=== PATIENT | male | born 1950 | race Caucasian/White ===

== ENCOUNTER 2024-07-02 12:43 | Outpatient (AMB) | payer OTHER, SELFPAY ==
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
[2024-07-02 13:01] VITALS: BMI 28.9
== END 2024-07-02 13:46 | disposition home or self-care (01) ==
PROVIDERS: PCP Psychiatry & Neurology Neurology; Visit Provider Psychiatry & Neurology Neurology
DX: G20.A1 Parkinson's disease without dyskinesia, without mention of fluctuations (principal); Z77.098 Contact with and (suspected) exposure to other hazardous, chiefly nonmedicinal, chemicals; G47.52 REM sleep behavior disorder
CPT/HCPCS: 99204; G2211

== ENCOUNTER → 2024-07-02 12:43 | Outpatient (BNVA) | payer OTHER, SELFPAY | PROVIDERS: PCP Psychiatry & Neurology Neurology; Visit Provider Psychiatry & Neurology Neurology | DX: G20.A1 Parkinson's disease without dyskinesia, without mention of fluctuations (principal); G47.52 REM sleep behavior disorder; Z77.098 Contact with and (suspected) exposure to other hazardous, chiefly nonmedicinal, chemicals | CPT/HCPCS: 99202 ==

== ENCOUNTER 2025-01-06 14:12 | Outpatient (AMB) | payer OTHER, SELFPAY ==
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
[2025-01-06 14:24] VITALS: BMI 27.8
--- OUTSIDE RECORDS SUMMARY | 2025-01-06 16:24 | XMS_ITS | Data Portability ---
Author Organization [facility], FORMERLY [facility] Address [address] [place] [address] Care Team Providers Care Retail Coverage Merchandiser Name Role Phone EDEL TAN Urologist SHERLYN THEODORE Embedder TRIP HOFFMAN Primary Care Provider Assessment Encounter Date Assessment Date Assessment LastModified by Organization Details LastModified Time 05/23/2023 05/23/2023 declines AAA screening or colonoscopy [email or web address] Not available 05/23/2023 15:30:55 11/21/2023 11/21/2023 labs 2024: Lipids/ BMP Could not bill PHA, not one year + one day since prior PHA [email or web address] Not available 11/25/2023 16:58:49 Plan of Treatment Reminders Order Date Submit Date Provider Last Modified By Organization Details Last Modified Time Details Appointments Wellness Visit 30 2024 03:30P Mary FULTON, PROPERTY FIELD ADJUSTER-BC Not available Not available Not available Lab BMP, serum or plasma 2023 [facility], [address] [place] [address], [address], 05/30/2024 10:46:40 lipid panel, serum 2023 024 [facility], [address] [place], [address], 05/30/2024 10:46:41 Referral dermatolo gist referral - 5-7 mm raised nodule L nare with hx BCChighly suspic for BCC, kindly consult 2023 024 CHERI Theodore MD, [address] [place], [address], 05/14/2024 14:52:06 Procedures None recorded. Surgeries None recorded. Imaging None recorded. Medication Orders None recorded. Patient TargetsNo targets recorded. Patient Instructions Encounter Date Encounter Id Patient Instructions Last Modified By Organization Details Last Modified Time 11/21/2023 [id number] well visit, over 65: care instructions livier Not available 11/21/2023 15:45:38 Reason for Referral Embedder Referral for N eoplasm of uncertain behavior of skin of nose 5-7 mm raised nodule L nare with hx BCChighly suspic for BCC, kindly consult Referring Physician: Ling Lopez, Family Medicine, Encounter Date: 05/12/2024 Results Created Date Observation Date Name Description Value Unit Range Abnormal Flag Note LastModifiedBy Organization Detail LastModifiedTime 05/09/2005/09/2023 BASIC METAB OLIC PANEL glucose 111 mg/dL 70-100 high Not Available [address], [address], 05/09/2023 12:57:07 05/09/2005/09/2023 BASIC METAB OLIC PANEL BUN 17 mg/dL 7-18 Not Available [address], [address], 05/09/2023 12:57:07 05/09/2005/09/2023 BASIC METAB OLIC PANEL creatinine 0.9 mg/dL 0.8-1. 3 Not Available [address], [address], 05/09/2023 12:57:07 05/09/2005/09/2023 BASIC METAB OLIC PANEL B/C 18.9 ratio Not Available [address], [address], 05/09/2023 12:57:07 05/09/2005/09/2023 BASIC METAB OLIC PANEL GFR >=60ML /MIN mL/mi n normal >=60m L/min - Jenny l or midly reduc ed <60mL /min- Decre ased kidne y funct ion <15mL /min - Kidne y failu re [facility] calcu lates estim ated Glome rular Filtr ation Rate (eGFR ) using the Chron ic Kidne y Disea se Epide miolo gy Colla borat ion (CKD- EPI) Equat ion (Nayane r et. al 2020) as recom jesenia d by the Natio nal Kidne y Found ation . eGFR is based on age, serum creat inine , and sex. CKD-E PI does not calcu late eGFR by race, does not apply to child niurka (age <18 years ), and shoul d not be used in pregn michael. Not Available [address], [address], 05/09/2023 12:57:07 05/09/20 23 05/09/2023 BASIC METAB OLIC PANEL sodium 139 mmol/ L 136-14 5 Not Available [address], [address], 05/09/2023 12:57:07 05/09/20 23 05/09/2023 BASIC METAB OLIC PANEL potassium 4.1 mmol/ L 3.5-5. 1 Not Available [address], [address], 05/09/2023 12:57:07 05/09/20 23 05/09/2023 BASIC METAB OLIC PANEL chloride 102 mmol/ L 96-107 Not Available [address], [address], 05/09/2023 12:57:07 05/09/2005/09/2023 BASIC METAB OLIC PANEL anion gap 8.3 5.0-15 .0 Not Available [address], [address], 05/09/2023 12:57:07 05/09/20 23 05/09/2023 BASIC METAB OLIC PANEL CO2 29 mmol/ L 21-32 Not Available [address], [address], 05/09/2023 12:57:07 05/09/20 23 05/09/2023 BASIC METAB OLIC PANEL calcium 9.3 mg/dL 8.5-10 .3 Not Available [address], [address], 05/09/2023 12:57:07 05/09/20 23 05/11/2023 PSA PSA <0.05 NG/mL 0.00-4 .00 < Verif ied by Anam garcia. Not Available [address], [address], 05/11/2023 11:55:35 11/14/19 24 11/15/2023 PSA PSA <0.05 NG/mL 0.00-4 .00 < Verif ied by tiffany tay gc. Not Available [address], [address], 11/15/2023 10:40:45 11/14/19 24 11/15/2023 BASIC METAB OLIC PANEL glucose 95 mg/dL 70-100 Not Available [address], [address], 11/15/2023 10:58:39 11/14/19 24 11/15/2023 BASIC METAB OLIC PANEL BUN 15 mg/dL 7-18 Not Available [address], [address], 11/15/2023 10:58:39 11/14/19 24 11/15/2023 BASIC METAB OLIC PANEL creatinine 0.8 mg/dL 0.8-1. 3 Not Available [address], [address], 11/15/2023 10:58:39 11/14/19 24 11/15/2023 BASIC METAB OLIC PANEL B/C 18.8 ratio Not Available [address], [address], 11/15/2023 10:58:39 11/14/19 24 11/15/2023 BASIC METAB OLIC PANEL GFR >=60ML /MIN mL/mi n normal >=60m L/min - Jenny l or midly reduc ed <60mL /min- Decre ased kidne y funct ion <15mL /min - Kidne y failu re [facility] calcu lates estim ated Glome rular Filtr ation Rate (eGFR ) using the Chron ic Kidne y Disea se Epide miolo gy Colla borat ion (CKD- EPI) Equat ion (Nayane r et. al 2020) as recom jesenia d by the Natio nal Kidne y Found ation . eGFR is based on age, serum creat inine , and sex. CKD-E PI does not calcu late eGFR by race, does not apply to child niurka (age <18 years ), and shoul d not be used in pregn michael. Not Available [address], [address], 11/15/2023 10:58:39 11/14/19 24 11/15/2023 BASIC METAB OLIC PANEL sodium 142 mmol/ L 136-14 5 Not Available [address], [address], 11/15/2023 10:58:39 11/14/19 24 11/15/2023 BASIC METAB OLIC PANEL potassium 4.0 mmol/ L 3.5-5. 1 Not Available [address], [address], 11/15/2023 10:58:39 11/14/19 24 11/15/2023 BASIC METAB OLIC PANEL chloride 104 mmol/ L 96-107 Not Available [address], [address], 11/15/2023 10:58:39 11/14/19 24 11/15/2023 BASIC METAB OLIC PANEL anion gap 11.4 5.0-15 .0 Not Available [address], [address], 11/15/2023 10:58:39 11/14/1911/15/2023 BASIC METAB OLIC PANEL CO2 27 mmol/ L 21-32 Not Available [address], [address], 11/15/2023 10:58:39 11/14/1911/15/2023 BASIC METAB OLIC PANEL calcium 8.8 mg/dL 8.5-10 .3 Not Available [address], [address], 11/15/2023 10:58:39 11/14/1911/15/2023 LIPID PANEL cholesterol 184 mg/dL <200 mg/dl Mona able 200-2 39 mg/dl Borde rline High >240 mg/dl High Not Available [address], [address], 11/15/2023 10:58:40 11/14/1911/15/2023 LIPID PANEL triglyceride s 171 mg/dL <150 mg/dL Jenny l 150-1 99 mg/dL Borde rline High 200-4 99 mg/dL High >500 mg/dL Very High Not Available [address], [address], 11/15/2023 10:58:40 11/14/1911/15/2023 LIPID PANEL direct HDL 39 mg/dL <40 mg/dl - Major Risk for CHD >60 mg/dl - Negat raji Risk for CHD Not Available [address], [address], 11/15/2023 10:58:40 11/14/1911/15/2023 DIREC T LDL direct LDL 118 mg/dL RISK CATEG ORY LDL GOAL _ CHD or CHD Risk Equiv alent s <100 mg/dl (10-y ear risk >20%) 2+ Risk Facto rs <130 mg/dl (10-y ear risk <= 20%) 0-1 Risk Facto r? <160 mg/dl ? Almos t all peopl e with 0-1 risk facto r have a 10 year risk <10%, thus 10 year risk asses ment in peopl e with 0-1 risk facto r is not ac will. Not Available [address], [address], 11/15/2023 10:58:41 05/05/2005/05/2024 CBC WBC 8.62 K/? ? ?L 4.23-9 .07 Not Available [address], [address], 05/05/2024 17:06:07 05/05/2005/05/2024 CBC RBC 5.00 M/? ? ?L 4.63-6 .08 Not Available [address], [address], 05/05/2024 17:06:07 05/05/2005/05/2024 CBC HGB 13.4 g/dL 13.7-1 7.5 low Not Available [address], [address], 05/05/2024 17:06:07 05/05/2005/05/2024 CBC HCT 42.1 % 40.1-5 1.0 Not Available [address], [address], 05/05/2024 17:06:07 05/05/2005/05/2024 CBC MCV 84.2 fL 79.0-9 2.2 Not Available [address], [address], 05/05/2024 17:06:07 05/05/20 24 05/05/2024 CBC MCH 26.8 pg 25.7-3 2.2 Not Available [address], [address], 05/05/2024 17:06:07 05/05/2005/05/2024 CBC MCHC 31.8 g/dL 32.3-3 6.5 low Not Available [address], [address], 05/05/2024 17:06:07 05/05/2005/05/2024 CBC plt 222 K/? ? ?L 163-33 7 Not Available [address], [address], 05/05/2024 17:06:07 05/05/2005/05/2024 CBC MPV 10.9 fL 9.4-12 .4 Not Available [address], [address], 05/05/2024 17:06:07 05/05/2005/05/2024 CBC neut% 70.2 % 34.0-6 7.9 high Not Available [address], [address], 05/05/2024 17:06:07 05/05/2005/05/2024 CBC neut# 6.06 1.78-5 .38 high Not Available [address], [address], 05/05/2024 17:06:07 05/05/2005/05/2024 CBC lymph % 22.2 % 21.8-5 3.1 Not Available [address], [address], 05/05/2024 17:06:07 05/05/2005/05/2024 CBC lymph # 1.91 K/? ? ?L 1.32-3 .57 Not Available [address], [address], 05/05/2024 17:06:07 10/14/20 24 05/05/2024 CBC mono% 6.3 % 5.3-12 .2 Not Available [address], [address], 05/05/2024 17:06:07 05/05/2005/05/2024 CBC mono# 0.54 0.30-0 .82 Not Available [address], [address], 05/05/2024 17:06:07 05/05/2005/05/2024 CBC eo% 0.6 % 0.8-7. 0 low Not Available [address], [address], 05/05/2024 17:06:07 05/05/2005/05/2024 CBC eo# 0.05 0.04-0 .54 Not Available [address], [address], 05/05/2024 17:06:07 05/05/2005/05/2024 CBC baso% 0.2 % 0.2-1. 2 Not Available [address], [address], 05/05/2024 17:06:07 05/05/2005/05/2024 CBC baso# 0.02 0.00-0 .08 Not Available [address], [address], 05/05/2024 17:06:07 05/05/2005/05/2024 CBC RDW-CV 13.1 % 11.6-1 4.4 Not Available [address], [address], 05/05/2024 17:06:07 05/05/2005/05/2024 CBC Ig% 0.500 % 0.000- 1.500 Ig % >0.5 Indic ates possi ble Left Shift Not Available [address], [address], 05/05/2024 17:06:07 05/05/20 24 05/05/2024 CBC Ig# 0.040 0.000- 0.093 Not Available [address], [address], 05/05/2024 17:06:07 05/05/20 24 05/05/2024 CBC NRBC% 0.0 % 0.0-0. 2 Not Available [address], [address], 05/05/2024 17:06:07 05/05/20 24 05/05/2024 CBC NRBC# 0.000 0.000- 0.012 Not Available [address], [address], 05/05/2024 17:06:07 05/05/20 24 05/06/2024 COMP. METAB OLIC PANEL glucose 101 mg/dL 70-100 high Not Available [address], [address], 05/06/2024 11:27:43 05/05/20 24 05/06/2024 COMP. METAB OLIC PANEL BUN 16 mg/dL 7-18 Not Available [address], [address], 05/06/2024 11:27:43 05/05/20 24 05/06/2024 COMP. METAB OLIC PANEL creatinine 0.9 mg/dL 0.8-1. 3 Not Available [address], [address], 05/06/2024 11:27:43 05/05/20 24 05/06/2024 COMP. METAB OLIC PANEL B/C 17.8 ratio Not Available [address], [address], 05/06/2024 11:27:43 05/05/20 24 05/06/2024 COMP. METAB OLIC PANEL GFR >=60ML /MIN mL/mi n normal >=60m L/min - Jenny l or midly reduc ed <60mL /min- Decre ased kidne y funct ion <15mL /min - Kidne y failu re [facility] calcu lates estim ated Glome rular Filtr ation Rate (eGFR ) using the Chron ic Kidne y Disea se Epide miolo gy Colla borat ion (CKD- EPI) Equat ion (Nayane r et. al 2020) as recom jesenia d by the Natio nal Kidne y Found ation . eGFR is based on age, serum creat inine , and sex. CKD-E PI does not calcu late eGFR by race, does not apply to child niurka (age <18 years ), and shoul d not be used in pregn michael. Not Available [address], [address], 05/06/2024 11:27:43 05/05/2005/06/2024 COMP. METAB OLIC PANEL sodium 142 mmol/ L 136-14 5 Not Available [address], [address], 05/06/2024 11:27:43 05/05/2005/06/2024 COMP. METAB OLIC PANEL potassium 4.1 mmol/ L 3.5-5. 1 Not Available [address], [address], 05/06/2024 11:27:43 05/05/2005/06/2024 COMP. METAB OLIC PANEL chloride 104 mmol/ L 96-107 Not Available [address], [address], 05/06/2024 11:27:43 05/05/2005/06/2024 COMP. METAB OLIC PANEL anion gap 7.9 5.0-15 .0 Not Available [address], [address], 05/06/2024 11:27:43 05/05/20 24 05/06/2024 COMP. METAB OLIC PANEL CO2 30 mmol/ L 21-32 Not Available [address], [address], 05/06/2024 11:27:43 05/05/20 24 05/06/2024 COMP. METAB OLIC PANEL calcium 8.9 mg/dL 8.5-10 .3 Not Available [address], [address], 05/06/2024 11:27:43 05/05/20 24 05/06/2024 COMP. METAB OLIC PANEL total protein 7.1 g/dL 6.4-8. 2 Not Available [address], [address], 05/06/2024 11:27:43 05/05/20 24 05/06/2024 COMP. METAB OLIC PANEL albumin 3.6 g/dL 3.4-5. 0 Not Available [address], [address], 05/06/2024 11:27:43 05/05/20 24 05/06/2024 COMP. METAB OLIC PANEL globulin 3.5 g/dL Not Available [address], [address], 05/06/2024 11:27:43 05/05/20 24 05/06/2024 COMP. METAB OLIC PANEL A/G 1.0 ratio 0.8-2. 0 Not Available [address], [address], 05/06/2024 11:27:43 05/05/20 24 05/06/2024 COMP. METAB OLIC PANEL total bilirubin 0.40 mg/dL 0.00-1 .00 Not Available [address], [address], 05/06/2024 11:27:43 05/05/20 24 05/06/2024 COMP. METAB OLIC PANEL AST 10 U/L 0-37 Not Available [address], [address], 05/06/2024 11:27:43 05/05/2005/06/2024 COMP. METAB OLIC PANEL ALT 18 U/L 6-63 Not Available [address], [address], 05/06/2024 11:27:43 05/05/2005/06/2024 COMP. METAB OLIC PANEL alk. phos. 90 U/L 50-136 Not Available [address], [address], 05/06/2024 11:27:43 05/29/2005/30/2024 BASIC METAB OLIC PANEL glucose 99 mg/dL 70-100 Not Available [address], [address], 05/30/2024 10:46:40 05/29/20 24 05/30/2024 BASIC METAB OLIC PANEL BUN 15 mg/dL 7-18 Not Available [address], [address], 05/30/2024 10:46:40 05/29/20 24 05/30/2024 BASIC METAB OLIC PANEL creatinine 0.9 mg/dL 0.8-1. 3 Not Available [address], [address], 05/30/2024 10:46:40 05/29/2005/30/2024 BASIC METAB OLIC PANEL B/C 16.7 ratio Not Available [address], [address], 05/30/2024 10:46:40 05/29/20 24 05/30/2024 BASIC METAB OLIC PANEL GFR >=60ML /MIN mL/mi n normal >=60m L/min - Jenny l or midly reduc ed <60mL /min- Decre ased kidne y funct ion <15mL /min - Kidne y failu re [facility] calcu lates estim ated Glome rular Filtr ation Rate (eGFR ) using the Chron ic Kidne y Disea se Epide miolo gy Colla borat ion (CKD- EPI) Equat ion (Rossy r et. al 2020) as recom jesenia d by the Natio nal Kidne y Found ation . eGFR is based on age, serum creat inine , and sex. CKD-E PI does not calcu late eGFR by race, does not apply to child niurka (age <18 years ), and shoul d not be used in pregn michael. Not Available [address], [address], 05/30/2024 10:46:40 05/29/20 24 05/30/2024 BASIC METAB OLIC PANEL sodium 140 mmol/ L 136-14 5 Not Available [address], [address], 05/30/2024 10:46:40 05/29/20 24 05/30/2024 BASIC METAB OLIC PANEL potassium 4.2 mmol/ L 3.5-5. 1 Not Available [address], [address], 05/30/2024 10:46:40 05/29/20 24 05/30/2024 BASIC METAB OLIC PANEL chloride 103 mmol/ L 96-107 Not Available [address], [address], 05/30/2024 10:46:40 05/29/20 24 05/30/2024 BASIC METAB OLIC PANEL anion gap 5.4 5.0-15 .0 Not Available [address], [address], 05/30/2024 10:46:40 05/29/20 24 05/30/2024 BASIC METAB OLIC PANEL CO2 32 mmol/ L 21-32 Not Available [address], [address], 05/30/2024 10:46:40 05/29/20 24 05/30/2024 BASIC METAB OLIC PANEL calcium 9.3 mg/dL 8.5-10 .3 Not Available [address], [address], 05/30/2024 10:46:40 05/29/20 24 05/30/2024 LIPID PANEL cholesterol 208 mg/dL <200 mg/dl Mona able 200-2 39 mg/dl Borde rline High >240 mg/dl High Not Available [address], [address], 05/30/2024 10:46:41 05/29/20 24 05/30/2024 LIPID PANEL triglyceride s 127 mg/dL <150 mg/dL Jenny l 150-1 99 mg/dL Borde rline High 200-4 99 mg/dL High >500 mg/dL Very High Not Available [address], [address], 05/30/2024 10:46:41 05/29/20 24 05/30/2024 LIPID PANEL direct HDL 46 mg/dL <40 mg/dl - Major Risk for CHD >60 mg/dl - Negat raji Risk for CHD Not Available [address], [address], 05/30/2024 10:46:41 05/29/20 24 05/30/2024 DIREC T LDL direct LDL 144 mg/dL RISK CATEG ORY LDL GOAL _ CHD or CHD Risk Equiv alent s <100 mg/dl (10-y ear risk >20%) 2+ Risk Facto rs <130 mg/dl (10-y ear risk <= 20%) 0-1 Risk Facto r? <160 mg/dl ? Almos t all peopl e with 0-1 risk facto r have a 10 year risk <10%, thus 10 year risk asses ment in peopl e with 0-1 risk facto r is not ac will. Not Available [address], [address], 05/30/2024 10:46:42 05/29/20 24 05/30/2024 PSA PSA 0.05 NG/mL 0.00-4 .00 Not Available [address], [address], 05/30/2024 15:19:25 10/31/19 25 10/30/2024 BASIC METAB OLIC PANEL glucose 93 mg/dL 70-100 LIPS= Speci men Sligh tly Lipem ic. Chem Resul ts may be effec gab. Not Available [address], [address], 10/30/2024 16:23:57 10/31/19 25 10/30/2024 BASIC METAB OLIC PANEL BUN 12 mg/dL 7-18 Not Available [address], [address], 10/30/2024 16:23:57 10/31/19 25 10/30/2024 BASIC METAB OLIC PANEL creatinine 0.9 mg/dL 0.8-1. 3 Not Available [address], [address], 10/30/2024 16:23:57 10/31/19 25 10/30/2024 BASIC METAB OLIC PANEL B/C 13.3 ratio Not Available [address], [address], 10/30/2024 16:23:57 10/31/19 25 10/30/2024 BASIC METAB OLIC PANEL GFR >=60ML /MIN mL/mi n normal >=60m L/min - Jenny l or midly reduc ed <60mL /min- Decre ased kidne y funct ion <15mL /min - Kidne y failu re [facility] calcu lates estim ated Glome rular Filtr ation Rate (eGFR ) using the Chron ic Kidne y Disea se Epide miolo gy Colla borat ion (CKD- EPI) Equat ion (Inke r et. al 2020) as recom jesenia d by the [facility] . eGFR is based on age, serum creat inine , and sex. CKD-E PI does not calcu late eGFR by race, does not apply to child niurka (age <18 years ), and shoul d not be used in pregn michael. Not Available [address], [address], 10/30/2024 16:23:57 10/31/19 25 10/30/2024 BASIC METAB OLIC PANEL sodium 142 mmol/ L 136-14 5 Not Available [address], [address], 10/30/2024 16:23:57 10/31/19 25 10/30/2024 BASIC METAB OLIC PANEL potassium 4.1 mmol/ L 3.5-5. 1 Not Available [address], [address], 10/30/2024 16:23:57 10/31/19 25 10/30/2024 BASIC METAB OLIC PANEL chloride 104 mmol/ L 96-107 Not Available [address], [address], 10/30/2024 16:23:57 10/31/19 25 10/30/2024 BASIC METAB OLIC PANEL anion gap 9.6 5.0-15 .0 Not Available [address], [address], 10/30/2024 16:23:57 10/31/19 25 10/30/2024 BASIC METAB OLIC PANEL CO2 28 mmol/ L 21-32 Not Available [address], [address], 10/30/2024 16:23:57 10/31/19 25 10/30/2024 BASIC METAB OLIC PANEL calcium 9.0 mg/dL 8.5-10 .3 Not Available [address], [address], 10/30/2024 16:23:57 12/17/1912/16/2024 PSA PSA 0.09 NG/mL 0.00-4 .00 Not Available [address], [address], 12/16/2024 14:47:10 12/17/1912/17/2024 LIPID PANEL cholesterol 205 mg/dL <200 mg/dl Mona able 200-2 39 mg/dl Borde rline High >240 mg/dl High Not Available [address], [address], 12/17/2024 12:01:16 12/17/1912/17/2024 LIPID PANEL triglyceride s 132 mg/dL <150 mg/dL Jenny l 150-1 99 mg/dL Borde rline High 200-4 99 mg/dL High >500 mg/dL Very High Not Available [address], [address], 12/17/2024 12:01:16 12/17/1912/17/2024 LIPID PANEL direct HDL 45 mg/dL <40 mg/dl - Major Risk for CHD >60 mg/dl - Negat raji Risk for CHD Not Available [address], [address], 12/17/2024 12:01:16 12/17/1912/17/2024 DIREC T LDL direct LDL 138 mg/dL RISK CATEG ORY LDL GOAL _ CHD or CHD Risk Equiv alent s <100 mg/dl (10-y ear risk >20%) 2+ Risk Facto rs <130 mg/dl (10-y ear risk <= 20%) 0-1 Risk Facto r? <160 mg/dl ? Almos t all peopl e with 0-1 risk facto r have a 10 year risk <10%, thus 10 year risk asses ment in peopl e with 0-1 risk facto r is not ac will. Not Available [address], [address], 12/17/2024 12:01:17 Result Notes None recorded. Problems Name Problem SNOMED Code Status Onset Date Resolution Date Notes Provider Name and Address Organization Details Recorded Time Generali zed anxiety disorder 53884834 Completed 08/31/2015 Moisés Sargent DPM [address] [place] [address], [phone] , [facility] 6 11:42:40 Essentia l hyperten chano 16619128 Active labile white coat declines med change in past MIRIAN HODGES-LITA [address] [place] [address], [phone] , [facility] 5 06:30:34 Disorder of skin and/or subcutan eous tissue 95725274 Completed 06/11/2013 Moisés Sargent DPM [address] [place] [address], [phone] , [facility] 6 11:42:40 Mixed anxiety and depressi ve disorder 950774044 Active Moisés Sargent DPM [address] [place] [address], [phone] , [facility] 6 11:42:40 Foot pain 98086274 Completed 08/31/2015 Moisés Sargent DPM [address] [place] [address], [phone] , [facility] 6 11:42:40 Plantar fasciiti s 663568955 Active Moisés Sargent DPM [address] [place] [address], [phone] , [facility] 6 11:45:13 Labile hyperten chano due to being in a clinical environm ent 794688271 Active 2016 MIRIAN Hernandez [address] [place] [address], [address] , [facility] 7 14:46:08 Parkinso n's disease 73786454 Active 2018 follows w [place] neuro TRIP RIVERA, PROPERTY FIELD ADJUSTER-BC [address] [place] [address], [phone] , [facility] 5 06:30:44 Malignan t neoplasm of prostate 908064665 Active 2019 Lori Maradiaga, PROPERTY FIELD ADJUSTER[address], , [facility] 0 21:56:34 COVID-19 127944737 Active 2022 Behzad Chester MD [address] [place] [address], , [facility] 3 18:10:31 Posttrau matic stress disorder 55141853 Active 2022 Ling arrieta PA-C [address] [place] [address], [address] , [facility] 3 06:41:24 Carcinom a of prostate 127134068 Active 2006 Dr Tan s/p XRT at [facility] in [facility] started 2019 Ling arrieta PA-C [address] [place] [address], [address] , [facility] 3 15:15:24 Moderate recurren t major depressi on 33234204 Active 2023 Ling arrieta PA-C [address] [place] [address], [address] , [facility] 4 15:42:52 Bilatera l hearing loss 83075748 Active 2023 Ling arrieta PA-C [address] [place] [address], , [facility] 4 15:43:10 Benign prostati c hyperpla teofilo 825274242 Active 2023 per urology note 02/15/24 Zuleyma Flores RN BSN null, [facility] 4 17:08:29 Basal cell carcinom a of skin 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 Procedures Surgical History Date Name Laterality Status Provider Name and Address Organization Details Recorded Time 11/21/19 23 Medicare Wellness Visit completed Amalia Almazan [facility] 11/20/2022 14:39:42 11/21/19 23 Cardiovascular disease risk reduction counseling completed Ling danielle PA-C [address] [place], [address], [facility] 11/21/2022 06:39:33 08/02/19 22 Medicare Wellness Visit completed Yesica Bales [facility] 08/02/2021 13:33:37 08/02/19 22 Alcohol use screening completed Yesica Bales [facility] 08/02/2021 13:33:37 08/02/19 22 Cardiovascular disease risk reduction counseling completed Yesica Bales [facility] 08/02/2021 13:33:37 07/29/19 21 Medicare Wellness Visit completed Yesica Bales [facility] 07/29/2020 10:38:01 07/29/19 21 prevention-cardiov ascular risk reduction counseling completed Yesica Bales [facility] 07/29/2020 10:38:01 07/29/19 21 prevention-annual alcohol misuse screening completed Yesica Bales [facility] 07/29/2020 10:38:01 10/30/19 19 Medicare Wellness Visit completed PATRIA Ugalde [facility] 10/29/2018 14:50:26 10/26/19 18 Medicare Wellness Visit completed Yesica Bales [facility] 10/25/2017 10:46:09 10/26/19 18 POC Urinalysis Testing completed Yesica Stokesprem [facility] 10/25/2017 12:06:42 10/26/19 18 Digital rectal exam completed MIRIAN Hernandez [address] [place], [address], [facility] 10/25/2017 16:43:54 10/25/19 17 Medicare Wellness Visit completed Kaylee Long LPN [facility] 10/24/2016 11:13:26 08/23/19 16 Medicare Wellness Visit completed Kaylee Long LPN [facility] 08/23/2015 13:33:31 08/02/19 16 78435: PT Evaluation completed Moisés Patterson, PT [address] [place], [address], [facility] 08/02/2015 15:17:56 08/02/19 16 Treatment and Advice completed Moisés Patterson, PT [address] [place], [address], [facility] 08/02/2015 10:32:49 Imaging Results None recorded. Procedure Notes None recorded. Medical Equipment None Reported. Allergies Allergen ID Allergen Name Allergen Category Reaction Reaction Severity Criticality Documentation Date Start Date Code Code System Note Provider Name and Address Organization Details Recorded Time [id number] Shellfish (substanc e) food,medi cation anaphylax is Not available Not available 01/30/2012 [id number] [facility] 2 13:47:10 Medications Name Sig Start Date Stop Date Status Note LastModified by Organization Details LastModified Time nifedipin e ER 30 mg tablet,ex tended release 24 hr Take 1 tablet every day by oral route. active Not Available Not Available No t Available amoxicill in 500 mg capsule TAKE ONE CAPSULE BY MOUTH 4 TIMES A DAY UNTIL FINISHED 04/29 completed Not Available Not Available Not Available Miralax 17 gram/dose oral powder 1 heaping tablespo on in 4-8 oz of water or juice PO daily 2013 active Not Available Not Available Not Avai lable doxycycli ne hyclate 100 mg capsule active Not Available Not Available Not Available Anusol-HC 2.5 % rectal cream with applicato r Insert 1 applicat ion by rectal route for 30 days. 2013 active has it if he needs it Not Available Not Available Not Available atorvasta tin 10 mg tablet Take by oral route for 30 days. active Not Available Not Available No t Available azithromy dayanna 250 mg tablet Take 2 tablet(s ) today,th en 1 tab on day 2-5 04/05 completed Not Available Not Available Not Available citalopra m 10 mg tablet Take 1 tablet every day by oral route for 30 days. 01/30 completed Not Available Not Available Not Available lisinopri l 20 mg tablet Take 1 tablet every day by oral route for 30 days. active Not Available Not Available No t Available metoprolo l succinate ER 100 mg tablet,ex tended release 24 hr TAKE 1 TABLET DAILY. active Not Available Not Available No t Available chlorthal idone 25 mg tablet Take 1/2 tablet(s ) every day by oral route for 30 days. 2011 active Not Available Not Available Not Avai lable doxycycli ne monohydra te 100 mg tablet Take 2 tablet(s ) today X1 dose 2011 active Not Available Not Available Not Avai lable hydrocort isone acetate 25 mg rectal supposito ry 11/02 completed Not Available Not Available Not Available alprazola m 0.25 mg tablet Take 1 tablet every day by oral route for 30 days. 04/05 completed Not Available Not Available Not Available citalopra m 20 mg tablet Take 1 tablet(s ) every day by oral route for 30 days. 04/29 completed Not Available Not Available Not Available lorazepam 0.5 mg tablet Take 1 TABLET twice a day as needed 08/27 completed pt staes he takes it & then he empties out then feels all stiff Not Available Not Available Not Available tamsulosi n 0.4 mg capsule Take 1 capsule every day by oral route at bedtime. active takes 0.8mg Not Available Not Available Not Available Metamucil (sugar) 1.7 g oral wafer Take 1 wafer every day by oral route for 30 days. active Not Available Not Available No t Available Casodex 50 mg tablet Take 1 tablet every day by oral route. 01/31 completed Not Available Not Available Not Available Proctozon e-HC 2.5 % topical cream perineal applicato r 04/05 completed Not Available Not Available Not Available lisinopri l 10 mg tablet Take 1 tablet every day by oral route for 30 days. active Not Available Not Available No t Available nystatin- triamcino lone 100,000 unit/g-0. 1 % topical cream 07/29 completed Not Available Not Available Not Available lisinopri l 30 mg tablet Take 1 tablet every day by oral route for 30 days. 08/07 completed Not Available Not Available Not Available codeine 10 mg-guaife nesin 100 mg/5 mL oral liquid Take 10 ML @hs prn cough. 04/05 completed Not Available Not Available Not Available mupirocin 2 % topical ointment APPLY A SMALL AMOUNT TO THE AFFECTED AREA BY TOPICAL ROUTE 3 TIMES PER DAY 08/02 completed Not Available Not Available Not Available mirtazapi ne 15 mg tablet Take 0.5 tablets as needed by oral route at bedtime. 04/05 completed Not Available Not Available Not Available Nasonex 50 mcg/actua tion [place] 2 sprays every day by intranas al route for 30 days. 04/05 completed Not Available Not Available Not Available carbidopa 25 mg-levodo pa 100 mg tablet 1 tablet 3 times a day active Not Available Not Available No t Available lisinopri l 40 mg tablet TAKE 1 TABLET DAILY. active Not Available Not Available No t Available Nifedical XL 60 mg tablet,ex tended release Take 1 tablet every day by oral route for 30 days. active Not Available Not Available No t Available doxycycli ne hyclate 100 mg tablet active Not Available Not Available Not Available escitalop elisha 10 mg tablet Take 1 & 1/2 tablets daily active Not Available Not Available No t Available nifedipin e 100 mg active Not Available Not Available Not Available Elisimonad (6 month) active Not Available Not Available No t Available Paxlovid 300 mg (150 mg x 2)-100 mg tablets in a dose pack Take 1 dose pk twice a day by oral route for 5 days. 08/14 completed Not taking at this time 08/14/22 JF Not Available Not Available Not Available Vitals Date Recorded Body height Heart rate Body mass index (BMI) Body weight Provider Name and Address Organization Details Last Updated DateTime 08/13/2024 171.45 cm 80 /min 29.2 kg/m2 97565.36 g Louise Beach MA [facility] 08/13/2024 14:00:36 Date Recorded Systolic blood pressure Diastolic blood pressure Provider Name and Address Organization Details Last Updated DateTime 11/05/2024 142 mm[Hg] 86 mm[Hg] TRIP BURNETT, PROPERTY FIELD ADJUSTER-BC [address] [place] [address], [facility] 11/05/2024 15:10:04 Date Recorded Body height Body mass index (BMI) Body weight Oxygen saturation Oxygen saturation in Arterial blood by Pulse oximetry Heart rate Provider Name and Address Organization Details Last Updated DateTime 171.45 cm 27.7 kg/m2 28961.8 3 g 95 % 95 % 69 /min Princess Rust [facility] 14:58:09 Date Recorded Systolic blood pressure Diastolic blood pressure Provider Name and Address Organization Details Last Updated DateTime 11/21/2023 150 mm[Hg] 82 mm[Hg] Ling Lopez PA-C [address] [place] [address], [facility] 11/21/2023 15:18:12 Date Recorded Body height Body mass index (BMI) Body weight Heart rate Provider Name and Address Organization Details Last Updated DateTime 11/21/2023 171.45 cm 29.8 kg/m2 88293.03 g 84 /min Louise Beach [facility] 11/21/2023 14:36:50 Date Recorded Systolic blood pressure Diastolic blood pressure Provider Name and Address Organization Details Last Updated DateTime 05/12/2024 142 mm[Hg] 78 mm[Hg] Ling Lopez PA-C [address] [place] [address], [facility] 05/12/2024 16:45:22 Date Recorded Body height Body mass index (BMI) Body weight Heart rate Oxygen saturation Oxygen saturation in Arterial blood by Pulse oximetry Provider Name and Address Organization Details Last Updated DateTime 171.45 cm 29.5 kg/m2 92162.5 4 g 73 /min 97 % 97 % Terra Morales MA [facility] 4 15:57:12 Date Recorded Systolic blood pressure Diastolic blood pressure Provider Name and Address Organization Details Last Updated DateTime 05/23/2023 125 mm[Hg] 80 mm[Hg] Ling Lopez PA-C [address] [place] [address], [id number], [facility] 05/23/2023 15:28:28 Date Recorded Body height Heart rate Oxygen saturation Oxygen saturation in Arterial blood by Pulse oximetry Body mass index (BMI) Body weight Provider Name and Address Organization Details Last Updated DateTime 3 171.45 cm 68 /min 100 % 100 % 30.4 kg/m2 34595.1 g Ольга Martinez MA [facility] 15:00:23 Social History Question Answer Notes LastModified by Organizat ion Details LastModified Time Tobacco Smoking Status Former Smoker age [age] [facility] 05/12/2024 15:54:17 What Is Your Level Of Caffeine Consumption? Moderate Pepsi Information not available 11/20/2022 How Much Tobacco Do You Chew? None Information not available 02/02/2012 What Type Of Diet Are You Following? REGULAR Information not available 02/02/2012 Which Illicit Or Recreational Drugs Have You Used? No Information not available 10/24/2016 What Is The Highest Grade Or Level Of School You Have Completed Or The Highest Degree You Have Received? 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 No Information not available 11/20/2022 When Did You Quit Smoking? 15+yearssin celastcigar ette Information not available 05/12/2024 How Many Days In The Past Year Have You Had A Heavy Drinking Consumption (4+ Female, 5+ Male)? 0 Information not available 07/29/2020 Are There Any Guns Present In Your Home? Yes Locked Information not available 10/24/2016 Do You Use Insect Repellent Routinely? No Information not available 08/02/2021 Live Alone Or With Others? With Others Information not available 02/02/2012 Patient Has Health Care Proxy Signed And In Chart Yes Information not available 10/25/2017 Marital Status No Children livier Infor mation not available 11/21/2023 Mosquito Repellent Used Routinely Yes Information not available 07/29/2020 What Was The Date Of Your Most Recent Tobacco Screening? 11/05/2024 [email or web address] Information not available 11/05/2024 How Many Children Do You Have? 0 Information not available 08/31/2015 What Is Your Relationship Status? Information not available 11/20/2022 Do You Use Your Seat Belt Or Car Seat Routinely? Yes Information not available 08/02/2021 Seat Belts Used Routinely Yes Information not available 08/23/2015 Are You Sexually Active? Yes Information not available 02/02/2012 Smoke Alarm In Home Yes Information not available 08/23/2015 Do You Have Smoke And Carbon Monoxide Detectors In Your Home? Yes Information not available 08/02/2021 At What Age Did You Start Smoking Tobacco? 15 [email or web address] Information not available 05/12/2024 Are You Passively Exposed To Smoke? No Information not available 11/20/2022 How Much Tobacco Do You Smoke? 1 PPD [email or web address] Information not available 05/12/2024 What Types Of Sporting Activities Do You Participate In? None Information not available 10/25/2017 General Stress Level Low Information not available 10/24/2016 Do You Use Sunscreen Routinely? No Information not available 08/02/2021 How Many Years Have You Smoked Tobacco? 8 Information not available 05/12/2024 Sex: Male Functional Status Question Answer Note LastModified by Organizat ion Details LastModified Time Do you use any illicit or recreational drugs? No Information not available 08/02/2021 Do you or have you ever used any other forms of tobacco or nicotine? No [email or web address] Information not available 08/14/2022 What is your level of alcohol consumption? None Information not available 07/29/2020 Do you or have you ever used smokeless tobacco? Never used smokeless tobacco [email or web address] Information not available 05/23/2019 Are you currently employed? 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 Never used electronic cigarettes [email or web address] Information not available 05/23/2019 What is your exercise level? Occasional walking, inside bike Information not available 11/20/2022 Mental Status None recorded. Family History Relationship Description Onset Age of this Age Resolved Age Notes LastModified by Organization Details LastModified Time Brother Malignant neoplasm of urinary bladder surviv ed bladde r [place] [email or web address] o Not available 11/20/2022 17:02:05 Notes:Mother age 99 Medical History Condition Response Coronary Artery Disease N Gout N Atrial Fibrillation N Macular Degeneration N Kidney Stones N Erectile Dysfunction N Menopausal Symptoms N Depression N COPD N Incontinence N Cerebral Vascular Accident N ENDOCRINE N MUSCULOSKELETAL N Migraine Headaches N Congestive Heart Failure N RESPIRATORY N Alcoholism N Obesity N Diverticulosis N acne N Stroke N OTHER N Crohn's Disease N HIV/AIDS N GERD N CARDIOVASCULAR N Skin Cancer N Skin Disease N Rheumatoid Arthritis N Fibromyalgia N Chronic Vaginitis N Irritable Bowel Syndrome N Kidney Disease N Spondylitis N Anxiety Y GASTROINTESTINAL N SKIN N Peptic Ulcer Disease N Constipation N RHEUMATOLOGIC N Osteopenia N Rheumatic Fever N Cataracts N Bleeding Disorder N Tuberculosis N HEMATOLOGIC N Myocardial Infarction N Allergic Rhinitis N Allergies N Asthma N Polycystic Ovary Syndrome N Diabetes Type II N Substance Abuse N Seizures N Peripheral Vascular Disease N Rheumatic Heart Disease N Abnormal Pap N Diabetes Type I N Thyroid Disease N Leukemia N Colon Cancer N Breast Cancer N INFECTIOUS DISEASE N Lung Cancer N Alzheimers Dementia N Glaucoma N Hyperthyroid N Pacemaker N Atrophic Vaginitis N PSYCHIATRIC N Interstitial Lung Disease N Deep Vein Thrombosis N Psychiatric Disorders N Venous Insuffiency N Hearing Loss N rosacea N Systemic Lupus E N EYE N Heart Valve Replacement N eczema N Benign Prostatic Hypertrophy N Hyperparathyroid N CANCER N Schizophrenia N Suicide Attempt N Pulmonary Embolus N Chronic Cough N Osteoarthritis N NEUROLOGIC N Parkinson's Disease N Lyme Disease N Chronic Neck Pain N Prostate Cancer N ENT N Transient Ischemic Attack N Hepatitis C N Anemia N Colon Polyps N Hypothyroid N RENAL / GENITOURINARY N Hyperlipidemia N Valvular Heart Disease N Diverticulitis N METABOLIC N psoriasis N Hepatitis B N Chronic Back Pain N Bipolar Disorder N Ulcerative Colitis N Sleep Apnea N Heart Disease N Hypertension Y Osteoporosis N Immunizations Vaccine Type Date Status Note Provider Nam e and Address Organization Details Recorded Time Influenza, split virus, trivalent, PF 2 completed Not Available [facility] 08/09/2019 02:33:05 Tdap 3 completed Not Available [facility] 08/09/2019 02:15:15 Influenza, split virus, trivalent, PF 3 completed Not Available [facility] 08/09/2019 02:37:08 Influenza, split virus, trivalent, PF 4 completed Not Available [facility] 08/09/2019 02:19:49 Pneumococcal conjugate PCV 13 5 completed Not Available [facility] 08/09/2019 02:37:09 Td(adult) unspecified formulation 3 completed Elio Back [facility] 03/02/2012 09:42:25 Influenza, high-dose, trivalent, PF 5 completed Not Available [facility] 08/09/2019 02:31:52 Influenza, high-dose, trivalent, PF 6 completed Not Available [facility] 08/09/2019 02:37:19 pneumococcal polysaccharide PPV23 6 completed Not Available [facility] 08/09/2019 02:37:10 Influenza, high-dose, trivalent, PF 7 completed Not Available [facility] 08/09/2019 02:22:07 Influenza, high-dose, trivalent, PF 8 completed Not Available [facility] 08/09/2019 02:23:00 Influenza, high-dose, trivalent, PF 9 completed Not Available [facility] 08/09/2019 02:28:45 Influenza, high-dose, quadrivalent, PF 0 completed Yaneth Ace LPN null, [facility] 05/22/2020 15:24:04 Influenza, high-dose, quadrivalent, PF 2 completed MIRIAN Hernandez [address] [place] [address], [phone], [facility] 05/08/2022 13:35:43 COVID-19, mRNA, LNP-S, PF, 100 mcg/0.5mL dose or 50 mcg/0.25mL dose 1 [facility] 01/31/2021 15:27:24 COVID-19, mRNA, LNP-S, PF, 100 mcg/0.5mL dose or 50 mcg/0.25mL dose 1 completed Trip Jaquez CMA [facility] 08/19/2024 12:00:08 zoster recombinant 1 completed [facility] 08/02/2021 13:39:24 zoster recombinant 1 [facility] 08/02/2021 13:39:35 COVID-19, mRNA, LNP-S, PF, 100 mcg/0.5mL dose or 50 mcg/0.25mL dose 1 completed [facility] 08/19/2024 12:00:08 SARS-COV-2 (COVID-19) vaccine, UNSPECIFIED 2 completed [facility] 05/23/2023 14:53:10 COVID-19, mRNA, LNP-S, PF, 100 mcg/0.5mL dose or 50 mcg/0.25mL dose 1 completed JULIAN Trevizo, [facility] 08/19/2024 12:00:08 pneumococcal polysaccharide PPV23 1 completed [facility] 08/19/2024 12:00:08 COVID-19, mRNA, LNP-S, PF, 50 mcg/0.5 mL 4 completed JULIAN Trveizo, [facility] 08/19/2024 12:00:16 Influenza, high-dose, trivalent, PF 4 completed JULIAN Trevizo, [facility] 08/19/2024 12:00:16 COVID-19, mRNA, LNP-S, bivalent, PF, 50 mcg/0.5 mL or 25mcg/0.25 mL dose 2 completed DAGOBERTO Salgado [facility] 11/05/2024 14:56:47 Tdap 3 completed DAGOBERTO Salgado [facility] 11/05/2024 14:56:47 zoster live 4 completed [facility] 11/05/2024 14:56:47 Past Encounters Encounter ID Performer Location Encounter Start Date Encounter Closed Date Diagnosis/Indication Diagnosis SNOMED-CT Code Diagnosis ICD10 Code Diagnosis Note [id number] MIRIAN Hernandez [facility], [address] [place] [address] 01/30/2012 13:24:16 01/30/2012 14:12:17 [id number] MIRIAN Hernandez [facility], [address] [place] [address] 03/04/2012 13:17:08 03/04/2012 14:02:06 [id number] MIRIAN Hernandez [facility], [address] [place] [address] 03/18/2012 13:25:46 03/18/2012 14:16:27 [id number] MIRIAN Hernandez [facility], [address] [place] [address] 04/02/2012 13:26:12 04/02/2012 14:06:36 [id number] MIRIAN Hernandez [facility], [address] [place] [address] 04/08/2012 15:26:05 04/08/2012 16:25:01 [id number] MIRIAN Hernandez [facility], OFFICE [address] [place] [address] 04/29/2012 15:18:05 04/29/2012 16:12:38 [id number] [facility] [address] [place] [address] 05/21/2012 13:46:41 05/21/2012 14:27:23 [id number] WALT [facility]P [facility] [address] [place] [address] 06/24/2012 13:41:22 06/24/2012 14:29:13 [id number] WALT [facility]P [facility] [address] [place] [address] 07/08/2012 13:40:48 07/08/2012 14:26:28 [id number] W[facility] [address] [place] [address] 08/06/2012 13:32:09 08/06/2012 15:01:27 [id number] WALT [facility]P [facility], [address] [place] [address] 08/20/2012 13:31:25 08/20/2012 14:23:41 [id number] WALT [facility]P [facility] [address] [place] [address] 09/12/2012 11:10:32 09/12/2012 11:53:22 [id number] WALT [facility]P [facility], [address] [place] [address] 10/15/2012 13:30:46 10/15/2012 14:39:18 [id number] WALT [facility] [address] [place] [address] 01/15/2013 13:32:57 01/15/2013 14:34:55 [id number] W[facility] [address] [place] [address] 04/21/2013 13:31:57 04/24/2013 11:29:22 Benign essential hypertension 8934400 Blood pressure at goal Pt's anxiety interferes w/his ability to check BP @ home. Continue on BP meds as prescribed . Influenza vaccine needed [id number] MIRIAN Hernandez, [facility], [address] [place] [address] 08/14/2013 13:30:44 08/14/2013 14:23:57 Benign essential hypertension 7125891 Blood pressure NOT at goal. More anxious than usual today d/t being told by dentist that he has a skin lesion that needs to be checked.F/ U in 2 weeks or sooner prn. Disorder of skin 88865100 Has an appt. w/Dr. Theodore for further evalaution of skin lesion on face noted by his dentist. [id number] MIRIAN Hernandez, [facility], [address] [place] [address] 08/27/2013 13:50:03 08/27/2013 14:41:30 Generalized anxiety disorder 94289677 D/C Lorazepam, change to Xanax-agin discussed use of medication as well as potential adverse SE. Advised to use sparingly d/t potential for abuse. [id number] MIRIAN Hernandez, [facility], [address] [place] [address] 09/24/2013 13:32:53 09/24/2013 14:37:27 Essential hypertension 64599926 blood pressure slightly elevated at this visit today. Encouraged to use anti-anxie ty medication prior to future visits. plan to return to office in 2 months or sooner as needed. [id number] MIRIAN Hernandez [facility], [address] [place] [address] 10/22/2013 09:23:26 10/22/2013 10:35:19 Irregular bowel habits 945361118 At length discussion w/pt & about his current s/s. Questionab le IBS-will try Miralx to keep stools ia a more cosistent pattern, decrease juice intake, increase water. Plan to f/u in 1 week. Generalize d anxiety disorder 34106706 Take Xanax as previoisly prescribed BID. Irritation symptom 840906934 Advised using wipes post stool, can use a protective skin barrier such as zinc oxide & use HC 1% for irritation to be used overnite. [id number] MIRIAN Hernandez, [facility], [address] [place] [address] 10/29/2013 10:26:15 10/29/2013 11:07:27 Generalized anxiety disorder 80365136 continue on Xanax as previoisly prescribed BID. Irregular bowel habits 138169821 Continue with Miralax to keep stools in a more consistent pattern, decrease juice intake, increase water. [id number] MIRIAN Hernandez [facility], [address] [place] [address] 11/11/2013 13:40:30 11/11/2013 14:38:42 Irregular bowel habits 927407361 Continue with Miralax prn to keep stools ia a more consistent pattern, decrease juice intake, increase water. Plan to f/u in1 month as sooner. Generalize d anxiety disorder 68790622 if anxiety should return, advised to use Xanax as ordered when necessary. Increase exercise. [id number] MIRIAN Hernandez [facility], [address] [place] [address] 12/16/2013 13:31:31 12/16/2013 14:40:57 Irregular bowel habits 947966220 Continue with daily Metamucil to keep stools ia a more consistent pattern, decrease juice intake, increase water. Plan to f/u in1 month as sooner. Generalize d anxiety disorder 26468336 if anxiety should return, advised to use Xanax as ordered when necessary. Increase exercise. Benign ess ential hypertension 1821993 BP slightly elevated-m ost likely white coat & d/t increased anxiety. [id number] MIRIAN Hernandez, [facility], [address] [place] [address] 12/30/2013 13:52:26 12/30/2013 15:20:26 Mixed anxiety and depressive disorder 121390231 at length discussion with patient regarding the use of SSRI medication for his increasing anxiety. Discussed use of medication as well as potential adverse side effects. Patient has agreed to try Celexa 20 mg a day as written below. 2 return in one week for reevaluati on. Encouraged to use alcohol exam for episodes of increased anxiety. Unexplaine d weight loss 541827154 Will check labs based on recent weight loss. Further treatment pending results. He does have an upcoming appointmen t with gastroente rology which was made prior to this appointmen t. [id number] MIRIAN Hernandez, [facility], [address] [place] [address] 01/06/2014 08:19:41 01/06/2014 09:25:20 Mixed anxiety and depressive disorder 123092558 extremely anxious today, discussed results of the abdominal CT the patient relieved to hear that testing was normal, advised to continue with his mental health therapist, Will increase his Celexa to 30 mg a day, ordered Celexa 10 mg one tablet daily to be taken with the current Celexa 20 mg a day, advised to continue Alpralozam , denies any thoughts of suicide or self-harm and followup in one week or sooner as needed. patient agrees with this plan. [id number] MIRIAN Hernandez, [facility], [address] [place] [address] 01/15/2014 08:19:31 01/15/2014 09:18:01 Hemorrhoids [id number] Mixed anxi ety and depressive disorder [id number] unresolved , continue to followup with [place] and therapist, alprazolam reordered [id number] MIRIAN Hernandez, [facility], [address] [place] [address] 02/05/2014 11:26:44 02/05/2014 11:53:38 Mixed anxiety and depressive disorder [id number] Improved, continue on Citalopram 20 mg. Agreed to write for Mirtazapin e 15 mg HS when needed since he will no longer be seen at [place] at this time. F/u in 1 m. as scheduled. [id number] MIRIAN Hernandez, [facility], [address] [place] [address] 03/17/2014 13:35:39 03/17/2014 14:29:21 Benign essential hypertension 7637003 BP improved-a dvised to continue w/exercise , healthy food choices & continue on meds as prescribed . F/U in 2 m. or sooner prn Mixed anxi ety and depressive disorder 302071246 Improved, continue on Citalopram 20 mg & continue on Mirtazapin e 15 mg 1/2 tab daily. [id number] MIRIAN Hernandez, [facility], [address] [place] [address] 05/12/2014 13:27:33 05/12/2014 14:29:44 Influenza vaccine needed [id number] 106 Benign ess ential hypertension 7925731 BP is stable today, under 150/90, continue w/exercise & healthy diet. [id number] MIRIAN Hernandez, [facility], [address] [place] [address] 08/19/2014 13:17:29 08/19/2014 14:12:35 Adult health examination 340995911 see Risk Assessment and Lifestyle Change Counseling section above 63 yo M w/HX of anxiety, PTSD & HTN-most likely white coat, currently at his baseline. Remains active & feels well. labs ordered. Healthcare maintenanc e needs discussed. Planned follow-up in 3 months or sooner as needed. Return in one year for annual physical exam. Counseling [id number] Benign ess ential hypertension 2967142 Blood pressure at goal BP is improved since last visit-pt. most likely has white coat. Encouraged pt to check BP away from office-con tinues to be reluctant to do so for fear of increasing his anxiety. Will nee to be seen more fequently for BP checks. Counseled re low sodium diet, regular exercise, importance of taking meds as directed. RTC 3 mos - sooner prn for annual PE. Neoplasm of skin 171332377 L side of nose, we'll refer to dermatolog y for further evaluation [id number] MIRIAN Hernandez, [facility], [address] [place] [address] 12/02/2014 13:16:01 12/02/2014 14:16:44 Benign essential hypertension 3936807 blood pressure slightly elevated today but within normal range for him, probable white coat syndrome, continue with antihypert ensives as ordered, exercise and diet discussed. Plan follow-up in 3 months or sooner as needed History of malignant neoplasm of prostate 322671553 Active or passive immunization 608036082 [id number] MIRIAN Hernandez, [facility], [address] [place] [address] 03/02/2015 13:15:05 03/02/2015 14:05:26 Benign essential hypertension 0745628 blood pressure slightly elevated today but remains within normal range for him, probable white coat syndrome, continue with antihypert ensives as ordered, exercise and diet discussed. Plan follow-up in 6 months or sooner as needed Mixed anxi ety and depressive disorder 507525214 Discussed current meds that he is taking for his anxiety, recommend that he continue. [id number] Janine Mohr MD FP, [facility], [address] [place] [address] 05/13/2015 11:41:04 05/13/2015 12:14:12 Active or passive immunization 459134328 Z23 Foot pain 32822821 M79.6 72 R/O michael pathology. Per pt descriptio n of sharp pain this is likely nerve or structural , not michael, arthritis or enesthopat hy. Obtain xray and refer to PT. Consider need for arch support in his new (2 mo old) [employer] shoes). [id number] MIRIAN Hernandez, [facility], [address] [place] [address] 07/12/2015 13:19:19 07/12/2015 14:35:00 Plantar fasciitis 592873777 M72.2 L heel pain, probable plantar fasciitis, Super Feet inserts given for purchase for support, advised use of ice, rest, & Ibuprofen 200 mg 3 tabs TID to be taken w/food. If no improvemen t in 2-3 weeks, RTC, agrees w/plan. [id number] Moisés Patterson , PT Physical Therapy, [facility] [address] [place] [address] 08/02/2015 09:43:00 08/03/2015 10:11:59 Plantar fasciitis 782255485 M72.2 [id number] MIRIAN Hernandez , [facility], [address] [place] [address] 08/23/2015 13:16:21 08/23/2015 14:25:38 Adult health examination 025035734 Z00.00 see Risk Assessment and Lifestyle Change Counseling section above 64 yo M w/HX of anxiety, PTSD & HTN-most likely white coat, currently at his baseline. Remains active & feels well. Colonoscop y is UTD, HCM needs discussed, return in 6 m. for disease management visit. Counseling 018002153 Z71 .9 Benign ess ential hypertension 8814731 I10 BP stable-pt. most likely has white coat. Encouraged pt to check BP away from office-con noemí to be reluctant to do so for fear of increasing his anxiety. [id number] Moisés Sargent DPM Podiatry, [facility] [address] [place] [address] 09/14/2015 10:38:31 09/14/2015 11:43:28 Plantar fasciitis 259515082 M72.2 [id number] MIRIAN Hernandez, [facility], [address] [place] [address] 01/11/2016 10:10:14 01/11/2016 10:53:58 Cough 57700031 R05 cough med ordered as written below Seasonal allergy 6261746 04 J30.2 Advised to use OTC Claritin 10 mg a day during allergy season. [id number] MIRIAN Hernandez, [facility], [address] [place] [address] 02/01/2016 11:28:25 02/01/2016 12:39:47 Sinusitis 64768477 J32.9 [id number] MIRIAN Hernandez, [facility], [address] [place] [address] 04/05/2016 09:28:09 04/05/2016 10:54:01 Benign essential hypertension 4683073 I10 Blood pressure at goal. Continue on Lisinopril 40 mg & Metoprolol ER 100 mg/d. Continue to exercise & follow a heart healthy diet. Active or passive immunization 927873727 Z23 [id number] MIRIAN Hernandez, [facility], [address] [place] [address] 10/24/2016 10:23:45 10/24/2016 12:00:09 Adult health examination 959127896 Z00.00 see Risk Assessment and Lifestyle Counseling section above66 yo M w/HX of anxiety, PTSD & HTN-most likely white coat, currently at his baseline. Remains active & feels well. Colonoscop y is UTD, HCM needs discussed, return in 3 m. for disease management visit. Counseling 114976721 Z71 .9 Screening for disorder 071839810 Z11.59 History of malignant neoplasm of prostate 900842859 Z85.46 Benign ess ential hypertension 5807894 I10 BP sl. elevated today-pt. most likely has white coat. Encouraged pt to check BP away from office-con tinues to be reluctant to do so for fear of increasing his anxiety. F/U in 3 m. [id number] MIRIAN Hernandez, [facility], [address] [place] [address] 02/01/2017 13:28:35 02/01/2017 14:52:02 Benign essential hypertension 3771269 I10 Blood pressure NOT at goal. Continue on antihypert ensive meds as prescribed . F/U in 1 m. for recheck Hematoma of lower leg 44 1979955 S80.12XA Lower L leg, watch for increase in size, color or pain. No further treatment at this time [id number] MIRIAN Hernandez, [facility], [address] [place] [address] 03/06/2017 13:18:19 03/06/2017 13:57:08 Benign essential hypertension 9868037 I10 Blood pressure NOT at goal., although pt. has extreme whit coat & BP 150/90 in offcie today. No med changes [id number] MIRIAN Hernandez, [facility], [address] [place] [address] 05/17/2017 13:15:02 05/17/2017 14:31:49 Benign essential hypertension 2461318 I10 Blood pressure NOT at goal, but improved sicne last visit. Pt. has white coat Active or passive immunization 749953589 Z23 Mixed anxi ety and depressive disorder 349152593 F41.8 Discussed current meds that he is taking for his anxiety, recommend that he continue. Labile hyp ertension due to being in a clinical environment 841123465 I15.8 BP improved since last visit [id number] MIRIAN Hernandez, [facility], [address] [place] [address] 10/25/2017 10:26:29 10/25/2017 12:12:32 Adult health examination 072365011 Z00.00 see Risk Assessment and Lifestyle Change Counseling section above67 yo M w/HX of anxiety, PTSD & HTN-most likely white coat, elevated today. Remains active & feels well. Colonoscop y is UTD, HCM needs discussed, return in 2 m. for disease management visit. Labs ordered. Counseling 182140156 Z71 .9 Depression screening 171 621660 Z13.89 depression screening tool administer ed, entered into emr, scored and discussed, time greater than 7.5 minutes Benign ess ential hypertension 1867912 I10 Blood pressure NOT at goal. Postcoital bleeding 4888 0000 N93.0 Blood in urine 77748048 R31.9 Blood in urine after intercours e, HX of treated prostate caner w/radiatio n, Labs ordered as written below & referral to Urology. [id number] MIRIAN Hernandez, [facility], [address] [place] [address] 12/18/2017 14:04:56 12/18/2017 15:08:25 Jaw pain 075180559 R68.84 Seen w/student PA & agree w/plan as written Blood in urine 04666949 R31.9 Will continue f/u w/Urologis t as recommende d. Reassured. Ok to have intercours e. [id number] MIRIAN Hernandez, [facility], [address] [place] [address] 04/29/2018 13:17:37 04/29/2018 14:12:22 Benign essential hypertension 1196091 I10 Blood pressure NOT at goal. Pt. has white coat Active or passive immunization 214788698 Z23 Mixed anxi ety and depressive disorder 206468421 F41.8 stop Citalopram , start Lexapro 10 mg/d. F/U in 6 w. or sooner PRN [id number] MIRIAN Hernandez, [facility], [address] [place] [address] 05/27/2018 13:28:37 05/30/2018 16:15:23 Essential hypertension 92123519 I10 BP-improve d today, still not at goal. Continue on anti-hyper tensives. F/U in October as scheduled. Mixed anxi ety and depressive disorder 977787177 F41.8 Continue on Lexapro 10 mg/d. F/U in October as scheduled. [id number] MIRIAN Hernandez, [facility], [address] [place] [address] 07/18/2018 15:38:05 07/18/2018 16:32:58 Loose stool 283559892 R19.5 Pt. has declined exam & BP check. States I just wanted you to know about it. Advise d to Increase Metamucil to 3 tabs/d. Discussed diet-incre asing fiber. Plan to F/U in 1 month or sooner. [id number] MIRIAN Hernandez, [facility], [address] [place] [address] 10/29/2018 14:30:42 10/29/2018 15:56:38 Adult health examination 816661733 Z00.00 see Risk Assessment and Lifestyle Change Counseling section above68 yo M w/HX of anxiety, PTSD & HTN-most likely white coat, mildly elevated today. Remains active & feels well. Colonoscop y is UTD, HCM needs discussed, return in 3 m. for disease management visit. Recent labs reviewed & discussed. Essential tremor of hand increased- see below. Counseling 975200324 Z71 .9 Depression screening 171 720821 Z13.89 depression screening tool administer ed, entered into emr, scored and discussed, time greater than 7.5 minutes Essential hypertension 01250246 I10 BP 150/80, + white coat syndrome, cont. on Lisinopril 40 mg/d & Metoprolol succinate ER 100 mg/d. Cont. to follow a heart healthy diet & exercise. Mixed anxi ety and depressive disorder 666467052 F41.8 Stop Lexapro 10 mg/d. ? if Lexapro make be causing tremors, restart Citalopram at a lower dose than he was previously on. Essential tremor 8880298 09 G25.0 [id number] MIRIAN Hernandez, [facility], [address] [place] [address] 12/05/2018 13:40:56 12/05/2018 14:41:49 Parkinson's disease 33732827 G20 New diagnosis. Will be managed by Dr. Víctor Yadav in [place]. No medication s at this time. Will obtain records from [facility]. At length discussion about new diagnosis. [id number] MIRIAN Hernandez, [facility], [address] [place] [address] 01/30/2019 13:11:15 01/30/2019 14:01:13 Essential hypertension 40651476 I10 BP check declined today + white coat syndrome, cont. on Lisinopril 40 mg/d & Metoprolol succinate ER 100 mg/d. Continue to follow a heart healthy diet & exercise. Plan to f/u in . Parkinson's disease 4904 9000 G20 New diagnosis. Cont to be managed by Dr. Víctor Yadav in [place]. Now on Caribidopa 25 mg-Levodop a 100 mg TID prescribed [address] Dr. Yadav-sta rted a week ago-denies any adverse SE. Will obtain records from [facility]. At length discussion about new diagnosis. [id number] MIRIAN Hernandez , [facility], [address] [place] [address] 03/03/2019 13:24:02 03/03/2019 14:06:29 Essential hypertension 43110944 I10 BP has improved. Has white coat syndrome, cont. on Lisinopril 40 mg/d & Metoprolol succinate ER 100 mg/d. Continue to follow a heart healthy diet & exercise. Follow up in 3 months. Parkinson's disease 4904 9000 G20 Cont to be managed by Dr. Víctor Yadav in [place]. Now on Caribidopa 25 mg-Levodop a 100 mg TID prescribed by Dr. Yadav Will obtain records from [place]. [id number] MIRIAN Hernandez, [facility], [address] [place] [address] 05/23/2019 13:13:34 05/23/2019 14:03:59 Essential hypertension 89426276 I10 BP has improved. Has white coat syndrome, cont. on Lisinopril 40 mg/d & Metoprolol succinate ER 100 mg/d. Continue to follow a heart healthy diet & exercise. Follow up in 3 months. Active or passive immunization 641506081 Z23 [id number] MIRIAN Hernandez, [facility], [address] [place] [address] 11/03/2019 13:34:15 11/04/2019 10:46:41 Essential hypertension 85472698 I10 Unable to check BP-[facility] visit. Primary ma lignant neoplasm of prostate 39872426 C61 Under the care of Dr. Tan. Currently on Casodex 50 mg/d Mixed anxi ety and depressive disorder 771293114 F41.8 Currently stable, cont. on Escitalopr am 10 mg 1.5 tabs/d. [id number] Henry Gamble MD , [facility], [address] [place] [address] 05/22/2020 08:20:56 05/24/2020 14:34:47 Active or passive immunization 499362251 Z23 [id number] Janine Mohr MD , [facility], [address] [place] [address] 07/29/2020 10:36:56 08/02/2020 13:42:21 Adult health examination 216790046 Z00.00 see Risk Assessment and Lifestyle Change Counseling section above 69 yo M w/HX of anxiety, PTSD & HTN-most likely white coat. Remains active & feels well. Colonoscop y is UTD, HCM needs discussed, return in 3 m. for disease management visit. Recent labs reviewed & discussed. Essential tremor of hand increased- see below. Counseling 621625325 Z71 .9 including cardiovasc ular risk reduction counseling Depression screening 171 792903 Z13.89 depression screening tool administer ed, entered into emr, scored and discussed, time greater than 7.5 minutes Screening for alcohol abuse 982132459 Z13.39 Essential hypertension 91224608 I10 Unable to check BP-Telehea lt visit. Parkinson's disease 4904 9000 G20 Cont to be managed by Dr. Víctor Yadav in [place]. Now on Caribidopa 25 mg-Levodop a [address] Yadav. Will obtain records from [facility]. [id number] Janine Mohr MD , [facility], [address] [place] [address] 01/31/2021 15:19:51 02/01/2021 08:44:52 Essential hypertension 07005589 I10 BP 150/70-con tinues to have labile HTN-overal l consistent for this pt. Cont. on Lisinopril 40 mg/d & Metoprolol succinate ER 100 mg/d. Plan to f/u in 6 m for PHA Parkinson's disease 4904 9000 G20 Cont to be managed by Dr. Víctor Yadav in [place]. Remains on Caribidopa 25 mg-Levodop a 100 [address] Yadav. (only taking once a day). Mixed anxi ety and depressive disorder 333785020 F41.8 Currently stable, cont. on Escitalopr am 10 mg 1.5 tabs/d. Labile hyp ertension due to being in a clinical environment 045793683 I15.8 BP improved since last visit Folliculitis 51493913 L7 3.9 L side of neck, along hairline [id number] Janine Mohr MD , [facility], [address] [place] [address] 08/02/2021 13:05:18 08/07/2021 16:29:20 Adult health examination 804683611 Z00.00 see Risk Assessment and Lifestyle Change Counseling section above 70 yo M w/HX of anxiety, PTSD & HTN-most likely white coat. Remains active & feels well most days. Less energy now that he has Parkinson' s Disease. Colonoscop y due in September, HCM needs discussed, return in 6 m. for disease management visit. Recent labs reviewed & discussed. Counseling 995389096 Z71 .9 including cardiovasc ular risk reduction counseling Depression screening 171 017535 Z13.31 depression screening tool administer ed, entered into emr, scored and discussed, time greater than 7.5 minutes Screening for alcohol abuse 718037789 Z13.39 Essential hypertension 20471047 I10 BP 150/70-con tinues to have labile HTN-overal l consistent for this pt. Cont. on Lisinopril 40 mg/d & Metoprolol succinate ER 100 mg/d. Plan to f/u in 6 m for PHA Labile hyp ertension due to being in a clinical environment 385630599 I15.8 BP improved since last visit Parkinson's disease 4904 9000 G20 Cont to be managed by Dr. Víctor Yadav @ [place]. Remains on Caribidopa 25 mg-Levodop a 100 [address] Dr[address] Yadav. (taking 4/d). Primary ma lignant neoplasm of prostate 66537912 C61 Under the care of Dr. Tan. Currently on Casodex 50 mg/d Screening for malignant neoplasm of colon 152747046 Z12.11 Referral for a DIRECT booked colonoscop y. This patient is a healthy ASA Class 1 or 2 patient (only mild systemic disease), or a STABLE, well controlled insulin dependent diabetic. They do not have serious cardiac disease ie UT/angiopl asty within 1 year, symptomati c CHF; renal failure with CKD 4 or 5; take Coumadin, Plavix, Aggrenox, etc. [id number] Janine Mohr MD , [facility], [address] [place] [address] 01/31/2022 13:47:31 02/02/2022 14:23:46 Essential hypertension 77037486 I10 BP 144/80. Continues to have labile HTN-overal l consistent for this pt. Cont. on Lisinopril 40 mg/d & Metoprolol succinate ER 100 mg/d. Plan to f/u in 6 m for PHA Mixed anxi ety and depressive disorder 691893788 F41.8 Currently stable, cont. on Escitalopr am 10 mg 1.5 tabs/d. Parkinson's disease 4904 9000 G20 Cont to be managed by Dr. Víctor Yadav @ [place]. Remains on Caribidopa 25 mg-Levodop a [address] Yadav. (taking 4/d). [id number] Janine Mohr MD , [facility], [address] [place] [address] 05/03/2022 13:44:31 05/03/2022 16:01:57 Active or passive immunization 396004818 Z23 Essential hypertension 11201828 I10 BP elevated in office. Continues to have labile HTN-overal l consistent for this pt. Cont. on Lisinopril 40 mg/d & Metoprolol succinate ER 100 mg/d. Plan to f/u in 6 m for PHA Mixed anxi ety and depressive disorder 528696566 F41.8 Currently stable, cont. on Escitalopr am 10 mg 1.5 tabs/d. Parkinson's disease 4904 9000 G20 Cont to be managed by Dr. Víctor Yadav @ [place]. Remains on Caribidopa 25 mg-Levodop a [address] Yadav. (taking 4/d). [id number] Behzad Chester MD , [facility], [address] [place] [address] 07/25/2022 14:24:21 07/25/2022 16:52:52 COVID-19 403491608 U07.1 A discussion regarding the use of Paxlovid treatment in the setting of COVID-19 infection was had with the patient.Th e patient qualifies for Paxlovid treatment. They are 12 years old or older and weight at least 40kg (88lbs). They have a positive COVID test (either PCR or antigen). Symptom onset was within 5 days. They do not have severe renal impairment (GFR >30). If the GFR is 30-60, the dose of the medication is reduced. eGFR >60: 300mg nirmatrelv ir (two 150mg tablets) with 100mg ritonavir (one tablet). All 3 tablets taken together twice daily for 5 days, with or without food. ? eGFR 30-60: 150mg nirmatrelv ir with 100mg ritonavir. Both tablets taken together twice daily for 5 days, with or without food. The patient was advised that the treatment is sent to a local pharmacy. 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 Data from clinical trials have shown that these treatments reduce the risk of ER visits, hospitaliz ation, and in patients with mild to moderate symptoms, and those at high risk of complicati ons. Side effects were discussed: 1. Allergic reactions are possible, notify the nurse with any concerning symptoms2. Liver problems ? notify your provider if you experience loss of appetite, yellowing of the skin or eyes, dark colored urine, or pale colored stools.3. Altered sense of taste4. Nausea5. High blood pressure6. Muscle aches7. This is medication is still being investigat ed so not all side effects are known at this time.8. Risks for or breastfeed ing women are currently unknown.9. This medication may interact with oral control options. Please use condoms or a barrier method while on this medication .Your provider has reviewed interactio ns with all of your medication s and the following need to be stopped or the dose reduced: no adjustment needed of his medication sHow do I take PAXLOVID?P AXLOVID consists of 2 medicines: nirmatrelv ir and ritonavir. - Take 2 pink tablets of nirmatrelv ir with 1 white tablet of ritonavir by mouth 2 times each day (in the morning and in the evening) for 5 days. For each dose, take all 3 tablets at the same time.- If you have kidney disease, talk to your healthcare provider. You may need a different dose.- Swallow the tablets whole. Do not chew, break, or crush the tablets.- Take PAXLOVID with or without food.- Do not stop taking PAXLOVID without talking to your healthcare provider, even if you feel better.- If you miss a dose of PAXLOVID within 8 hours of the time it is usually taken, take it as soon as you remember. If you miss a dose by more than 8 hours, skip the missed dose and take the next dose at your regular time. Do not take 2 doses of PAXLOVID at the same time.he is unsure if he will take it. prescribed and all counseling done [id number] Agnes Ty MD , [facility], [address] [place] [address] 08/14/2022 11:57:17 08/14/2022 17:38:07 Open wound of right lower leg [id number] 4007071 S81.801A no sign infectionw ill keep cleancan use abx ointmentca ll if worsensmay take months to heal completely call if concerns [id number] Janine Mohr MD , [facility], [address] [place] [address] 11/20/2022 15:43:04 11/20/2022 17:40:52 Adult health examination 088254685 Z00.00 -signif parkinsons and anxiety and prostate CA. Overall is doing well and content w. keeping things as is. [facility] and urol for prostate CAWife is HCPwe discussed all screening options: declines colonsscop y or statin to lower LDL Depression screening 171 963032 Z13.31 depression screening tool administer edNEG Screening for alcohol abuse 929961166 Z13.39 Alcohol use screening tool administer edNEG Essential hypertension 44520535 I10 labile, known elev in officewill ck BPs at home and continue current meds Vaccination not done 477 5485321 9108 Z28.29 Patient declined the td vaccine at this time. 11/20/22 am Screening for malignant neoplasm of colon 116238074 Z12.11 Pt declines Malignant neoplasm of prostate 944016125 C61 under care of [facility] q 6 months, PSAs are stable Parkinson's disease 4904 9000 G20 stablemeds per [place], sees Dr Yadav /Neuro Posttrauma tic stress disorder 38111783 F43.10 diagnosed at age 56 per [facility] currently, no concerns about PTSD at this time Moderate r ecurrent major depression 74581224 F33.1 medication s are managed by [place]iatry per [place] in [place] Stable, doing well on 15 mg escitalopr am Counseled by member of primary health care team 337702190 Z71.9 Today we discussed ways to reduce your 10-year cardiovasc ular disease risk. Things that decrease risk for cardiovasc ular events include eating a diet high in fiber (fruits and vegetables ) and low in simple carbohydra mercedes (bread, rice, pasta, alcohol, potatoes), decreasing processed foods, limiting juice and alcohol, limiting saturated fats (butter, ice cream, and cheeses), and adding regular daily activity. Having blood pressure that is <130/80. Having well controlled cholestero l (LDL and triglyceri chyna) by eating a healthy diet and taking medication s when necessary. Managing daily stress with meditation or yoga. Depending on your other cardiovasc ular risks your practition er may recommend taking daily aspirin. [id number] Janine Mohr MD , [facility], [address] [place] [address] 05/23/2023 14:42:19 05/23/2023 17:47:47 Carcinoma of prostate [id number] C61 remission since 2006q 6 m eliqard inj per Dr Tan Essential hypertension 96385611 I10 Discussed BP goals. Pt is at goal. Reviewed sodium, cardiovasc ular exercise, maintainin g appropriat e weight. Continue w/ current meds. Parkinson's disease 4904 9000 G20.A2 under care of Dr Yadav/Jennifer Lloyd rmed of [facility] [employer] Exercise Eliud parkq Neurology OV notes from [facility] Screening for malignant neoplasm of colon 010074564 Z12.11 we discussed. had last colonoscop y ling day to day w/ Parkinsons and reports poor qual of life, declines further colonoscop y [id number] Janine Mohr MD , [facility], [address] [place] [address] 11/21/2023 14:10:21 11/21/2023 15:25:26 Screening for malignant neoplasm of colon 177589536 Z12.11 Declines Adult heal th examination 303238727 Z00.00 Overall stableIs content w. keeping things as is.Gets care at [facility]/ for psych and urol for prostate CAWife is HCPWe discussed all screening options: declines colonoscop y or statin to lower LDLTd is due, plans to get at the [facility] Depression screening 171 340952 Z13.31 did not administer Screening for alcohol abuse 058916887 Z13.39 Alcohol use screening tool administer edNEG Essential hypertension 29245332 I10 labile, known elev in officeBP not at goalGoal < 130/80repo rts white coat HTN and does not want to change med doses Vaccination not done 065 [id number] 9108 Z28.29 Patient declined the td vaccine at this time; reports he will get at the [facility] Malignant neoplasm of prostate 707506287 C61 Dx age 56, txd with XRTFollows w UrologyCon tinues Eligard q 6 monthsPSAs annually/ was < 0.05 Parkinson's disease 4904 9000 G20.A2 G20.B2 Managed by Neurology at [facility] ( Dr Yadav)Rep orts PET SCan pending soon DecemberContinu es carbidopa AD Posttrauma tic stress disorder 11063085 F43.10 [facility] age 56 [facility] [place] Moderate r ecurrent major depression 52773619 F33.1 medication s are managed by Psychiatry per [facility] in [place] Stable, doing well on 15 mg escitalopr am Counseled by member of primary health care team [id number] Z71.9 Today we discussed ways to reduce your 10-year cardiovasc ular disease risk. Things that decrease risk for cardiovasc ular events include eating a diet high in fiber (fruits and vegetables ) and low in simple carbohydra mercedes (bread, rice, pasta, alcohol, potatoes), decreasing processed foods, limiting juice and alcohol, limiting saturated fats (butter, ice cream, and cheeses), and adding regular daily activity. Having blood pressure that is <130/80. Having well controlled cholestero l (LDL and triglyceri chyna) by eating a healthy diet and taking medication s when necessary. Managing daily stress with meditation or yoga. You do not need daily aspirin Bilateral hearing loss 11683998 H91.93 declines audiol eval or hearing aids [id number] Janine Mohr MD , [facility], [address] [place] [address] 05/12/2024 15:42:46 05/12/2024 16:47:10 Adult health examination 886827337 Z00.00 Overall stableIs content w. keeping things as is.Gets care [facility]/ for [facility]/Park inson's and Prostate CAWe discussed all screening options: declines colonoscop y or statin to lower LDLVaccine s: declines Td , considerin g influenza/ encouraged this AND Covid booster Depression screening 171 630495 Z13.31 depression screening tool administer edNEG Screening for alcohol abuse 031728836 Z13.39 Alcohol use screening tool administer ed0 Malignant neoplasm of prostate 040130782 C61 Dx age 56, txd with XRTContinu es Eligard q 6 monthsPSAs annually/ was < 0.05 Parkinson's disease 4904 9000 G20.A2 G20.B2 Managed by Neurology at [facility] (previousl y by Dr Yadav, who has retired)Co ntinues carbidopa ADContinue s driving/ loves fishing, denies falls Benign pro static hyperplasia 251030786 N40.0 now taking tamsulosin 0.4 mg Fall 2023; working well for BPH/hesita ncy Posttrauma tic stress disorder 80233140 F43.10 diagnosed at age 56 [facility] [place]-bernard d extensive BH at [facility] with Nataliya Cwyn309% [facility] per [facility] for [facility] & Agent orange exposure 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 34450834 D48.5 needs biopsy; highly suspect for BCC, see piterPlea se call Dr Theodore's office, IF THEY CAN'T see you in 4-6 weeks, please let me know and we can arrange biopsy here at [facility] s hx (distant) of BCC in same/simil ar location Essential hypertension 34273928 I10 labile, known elev in officeBP not at goal/ does check at home and reports at goal < 130/80Know n white coat HTN and does not want to change med doses Moderate r ecurrent major depression 05689267 F33.1 medication s are managed by Psychiatry per [facility] [place] Stable, doing well on 15 mg escitalopr am [id number] Cory Camarena MD , [facility], [address] [place] [address] 08/13/2024 13:45:56 08/15/2024 09:57:18 Screening for malignant neoplasm of colon 902705645 Z12.11 declines Chronic constipation 236 273103 K59.09 Chronic constipati on likely related to prostate surgery and radiation therapy. Bisacodyl provides relief but causes explosive bowel movements and does not address stool hardness. - Recommend docusate 100-200 mg daily as a stool softener.- Advise prune juice as needed for laxative effect.- Encourage increased water intake.- Discuss potential use of Lubiprosto ne if current plan is ineffectiv e. [id number] Cory Camarena MD , [facility], [address] [place] [address] 11/05/2024 14:39:55 11/10/2024 14:00:39 Carcinoma of prostate 020389274 C61 Stable PSA. Follows w uro. Essential hypertension 67378953 I10 Above goal. Declines med adjustment . - Continue current regimen.- Follow up in 6 mos. 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 [facility] - Continue Lexapro.- Follow up in 6 mos. Parkinson's disease 4904 9000 G20.A2 G20.B2 Sees neuro in December. No recent med changes. Gait is slightly shuffling. Moderate tremor. Chronic constipation 236 369829 K59.09 Constipati on has improved with Colace, resulting in regular and softer bowel movements. Dietary changes, including reduced intake of binding foods and increased vegetables , have also contribute d to improvemen t. - Continue Colace- Follow up in 6 mos Health Concerns Section Related Observation LastModified by Organization Detai ls LastModified Time None Recorded Concern Status LastModified by Organization Details LastModified Time None Recorded Advance Directives Directive None Recorded Payers Insurance Date Sequence Insurance Name Policy Number Policy Pepper Covered Member ID Pepper Member ID Guarantor Name 12/14/2024 1 [employer] [employer] [place] (PPO) [id number] Jose Brando Willian [id number] Jose Dorsey 05/05/2024 1 [employer] [employer] 104 Jose Dorsey [id number] Jose Dorsey 05/05/2024 2 [place] [employer] Jose Dorsey [id number] Jose Dorsey Notes Date Note Type Note Provider Name and Address Organization Details Recorded Time 3 text/html [facility] HypertensionReported bypatient.Duration:Probab le [place] Context:No ischemic heart disease; No kidney disease; No history of CVA; No congestive heart failure; No history of transient ischemic attacks; No peripheral vascular disease; No history of diabetes Control:BP Goal less than (130/80); Treated with diet and exercise; Treated with medications; Patient understands medications are to lower blood pressure Compliance:Compliant with medications; Compliant with diet; Compliant with exercise; Compliant with follow-up visits Barriers to Careunder stress (Parkinsons disease); history of depression Self Care:not doing home bp monitoring Aggravating factors:Increased when in office Associated Symptoms:No chest pain; No shortness of breath; No edema; No fatigue; No palpitations; No decline in exercise capacity; No snoring Ability to Manage Self CareOn how confident the patient feels in ability to self manage condition the patient selects 8 with 10 being very confident and 1 being very low confidence; Patient feels moderately confident in ability to self manage condition Patient here today for MM72 yo M with Parkinsons, prostate CAHistory of prostate CA at age 56, treated with XRT, had urinary voiding difficulties and got very depressed. Was treated at [facility].Fatmata nues q 6 mo Eligard inj per Urol; PSA undetectable Parkinson's is stable-admits he was not taking the full prescribed dose of carbidopa 25 mg-levodopa 100 mg (believes Parkinsons is d/t Agent [place] in [place], [facility], [facility]) Denies SOB, CP, DOEParkinsons is frustrating; decr QoL, cant do things he loves like [employer] Ski, motorcycle. Ling Lopez PA-C [address] [place] [address], [phone], [facility] 05/23/2023 15:43:21 4 text/html Physical Exam/MaleReported bypatient.PHAPatient is here for a Wellness Visit. He describes his health status as good. Patient's health is worse than last year.Risk Assessment and Lifestyle Change Counseling (Medicare)Reported bypatient.Coronary Artery Disease Risk Assessment:Family History of Coronary Artery Disease(Father, PGM); No personal history of diabetes; No history of peripheral vascular disease, AAA, or carotid disease; No personal history of coronary artery disease Breast Cancer Risk Assessment:Family history of breast cancer(sister) Colon Cancer Risk Assessment:No family history of pre cancerous colon polyps or cancer Lung Cancer Risk Assessment:Has used cigarettes less than 30 pack years;Former smoker quit more than 15 years ago;Patient has higher than average risk for lung cancer Fracture Risk Assessment:No unexplained fracture Cognitive/Behavioral Risk Assessment:Personal history of mental illness;Family history of mental illness Safety Risk Assessment:Has grab bars in bathroom;No rails on steps; No falls; No evidence of abuse/neglect; Do you feel safe in your current relationship?YES; Have you ever been a victim of physical/emotional/sexual abuse?NO Functional Status:Patient has trouble hearing the television or radio when others do not.;Patient has to strain or struggle to hear/understand conversations.; Patient does not need help with preparing meals, transportation, shopping, taking medicine, managing finances, or other activities of daily living.; Patient does not have visual loss that interferes with daily activities; Does not live alone; Patient was not unsteady and did not take longer than 30 seconds during the timed get up and go test.; Patient reports no falls in the past 6 months. Diet:Counseled about appropriate portion size; Counseled about eating a diet low in trans and saturated fats and high in fiber, fruits and vegetables; Counseled about appropriate calcium intake and good dietary sources of calcium.; Counseled about decreasing carbohydrates; Counseled about decreasing salt in diet Exercise counseling:Discussed the importance of daily physical activity; Discussed the importance of weight bearing exercise Safety:Counseled about protecting skin from the sun and lowering the risk of skin cancer; Counseled about avoiding excessive and unsafe alcohol intake; Counseled about use of helmets for high velocity activiities; Counseled about home safety including use of smoke detectors, CO detectors, keeping home water temperature less than 120; Counseled about use of seat belts; Counseled about fall risk from throw rugs and the need for hand rails on steps and in bathVMG HypertensionReported bypatient.Duration:Probab le [place] Context:No ischemic heart disease; No kidney disease; No history of CVA; No congestive heart failure; No history of transient ischemic attacks; No peripheral vascular disease; No history of diabetes Control:BP Goal less than (130/[address]/90); Treated with diet and exercise; Treated with medications; Patient understands medications are to lower blood pressure Compliance:Compliant with medications; Compliant with diet; Compliant with exercise; Compliant with follow-up visits Barriers to Careunder stress (Parkinsons disease); history of depression Self Care:not doing home bp monitoring Aggravating factors:Increased when in office Associated Symptoms:No chest pain; No shortness of breath; No edema; No fatigue; No palpitations; No decline in exercise capacity; No snoring Ability to Manage Self CareOn how confident the patient feels in ability to self manage condition the patient selects 8 with 10 being very confident and 1 being very low confidence; Patient feels moderately confident in ability to self manage condition MM HTN- Pt declined to have BP checked by [place]72 yo M with Parkinsons, prostate CA History of prostate CA at age 56, treated with XRT, had urinary voiding difficulties and got very depressed. Was treated at [facility].Fatmata nues q 6 mo Eligard inj per Urol; PSA undetectable Parkinson's is stable-admits he was not taking the full prescribed dose of carbidopa 25 mg-levodopa 100 mg (believes Parkinsons is d/t Agent [place] in [place], is managed by [facility], Dr Yadav). Dr Yadav will be leaving the [facility] and will refer Jose to a private Neurologist.Parkinsons is frustrating; decr QoL, cant do things he loves like X[employer] Ski, motorcycle. Also sees Psychiatry at [facility]; has appt in December 2023 for FUVery depressed in the morning b/c Parkinsons sxs are the worst in am; dressing is challenging. dont always want to get OOB PTSD: 70% disability / [place], [employer]. In touch with other Vets on [employer] History of prostate CA at age 56, treated with XRT, had urinary voiding difficulties and got very depressed. Was treated at [facility]. Ling Lopez PA-C [address] [place] [address], [phone], [facility] 11/25/2023 17:00:20 4 text/html Physical Exam/MaleReported bypatient.PHAPatient is here for a Wellness Visit. He describes his health status as good. Patient's health is worse than last year.Risk Assessment and Lifestyle Change Counseling (Medicare)Reported bypatient.Coronary Artery Disease Risk Assessment:Family History of Coronary Artery Disease(Father, PGM); No personal history of diabetes; No history of peripheral vascular disease, AAA, or carotid disease; No personal history of coronary artery disease Breast Cancer Risk Assessment:Family history of breast cancer(sister) Colon Cancer Risk Assessment:No family history of pre cancerous colon polyps or cancer Lung Cancer Risk Assessment:Has used cigarettes less than 30 pack years;Former smoker quit more than 15 years ago;Patient has higher than average risk for lung cancer Fracture Risk Assessment:No unexplained fracture Cognitive/Behavioral Risk Assessment:Personal history of mental illness;Family history of mental illness Safety Risk Assessment:Has grab bars in bathroom;No rails on steps; No falls; No evidence of abuse/neglect; Do you feel safe in your current relationship?YES; Have you ever been a victim of physical/emotional/sexual abuse?NO Functional Status:Patient has trouble hearing the television or radio when others do not.;Patient has to strain or struggle to hear/understand conversations.; Patient does not need help with preparing meals, transportation, shopping, taking medicine, managing finances, or other activities of daily living.; Patient does not have visual loss that interferes with daily activities; Does not live alone; Patient was not unsteady and did not take longer than 30 seconds during the timed get up and go test.; Patient reports no falls in the past 6 months. Diet:Counseled about appropriate portion size; Counseled about eating a diet low in trans and saturated fats and high in fiber, fruits and vegetables; Counseled about appropriate calcium intake and good dietary sources of calcium.; Counseled about decreasing carbohydrates; Counseled about decreasing salt in diet Exercise counseling:Discussed the importance of daily physical activity; Discussed the importance of weight bearing exercise Safety:Counseled about protecting skin from the sun and lowering the risk of skin cancer; Counseled about avoiding excessive and unsafe alcohol intake; Counseled about use of helmets for high velocity activiities; Counseled about home safety including use of smoke detectors, CO detectors, keeping home water temperature less than 120; Counseled about use of seat belts; Counseled about fall risk from throw rugs and the need for hand rails on steps and in bathVMG HypertensionReported bypatient.Duration:Probab le [place] Context:No ischemic heart disease; No kidney disease; No history of CVA; No congestive heart failure; No history of transient ischemic attacks; No peripheral vascular disease; No history of diabetes Control:BP Goal less than (150/90); Treated with diet and exercise; Treated with medications; Patient understands medications are to lower blood pressure Compliance:Compliant with medications; Compliant with diet; Compliant with exercise; Compliant with follow-up visits Barriers to Careunder stress; history of depression Self Care:not doing home bp monitoring Aggravating factors:Increased when in office Associated Symptoms:No chest pain; No shortness of breath; No edema; No fatigue; No palpitations; No decline in exercise capacity; No snoring Ability to Manage Self CareOn how confident the patient feels in ability to self manage condition the patient selects 8 with 10 being very confident and 1 being very low confidence; Patient feels moderately confident in ability to self manage condition wellnessdue for AAA screening, colonoscopy, flu, td/dap - declined allpt declined BP taken by MA will only let KWV take BPLives home with / goes out to dinner a lotNew: started tamsulosin 0.4 mg 02/2024 ; working well for urinary hesistancy d/t BPHStill driving, feels safe. Neurology doesn't disagree (?) . Fishes a lot History of prostate CA at age 56, treated with XRT, had urinary voiding difficulties and got very depressed. Was treated at [facility]. Parkinson's is stable-continues carbidopa 25 mg-levodopa 100 mg (believes Parkinsons is d/t [place], [facility]) Ling Lopez PA-C [address] [place], [address], [facility] 05/12/2024 18:18:52 5 text/html The patient, with a history of prostate cancer treated with surgery and radiation, and Parkinson's disease, presents with chronic constipation. He reports that since his radiation treatment, he has experienced intermittent constipation followed by 'explosive' diarrhea. He has been managing his symptoms with Metamucil, which has provided some relief. However, recently, his constipation has worsened, with bowel movements becoming harder and more frequent, often requiring multiple attempts in the morning to feel 'cleared out.' He describes the initial stool as a hard 'nugget,' which once passed, is followed by looser stool. To manage this, he has been using Dulcolax, which has been effective in relieving his constipation, but has also resulted in 'explosive' bowel movements. He has also been drinking prune juice and is curious if this is a viable alternative. OSORIO MA, [address] [place], [address], [facility] 08/14/2024 14:01:27 5 text/html MM ConstipationExplosive BMs w bisacodylCounseled in July to try docusate, prune juice, increase water intake Constipation resolved and having one soft stool daily. BPH/prostate cancerFlomax 0.8mg dailyFollows w urologyGood PVRsProstate cancer dx 2006 s/p Eliguard and XRTPSAs stableNo nocturia HTNLabile, white coatPreviously declined med adjustmentlisinopril 40mg daily, metoprolol ER 100mg daily Anxiety, depressionLexapro 15mg dailyMood good Parkinson'sFollows w [facility] neuroNo notes availableHis next neurology appointment is in December. TRIP Peoples, [employer]-[address], [phone], [facility] 11/05/2024 16:21:08
== END 2025-01-06 14:59 | disposition home or self-care (01) ==
LOC: HO.HSMS 14:13
PROVIDERS: PCP Psychiatry & Neurology Neurology; Referring Provider Psychiatry & Neurology Neurology; Visit Provider Psychiatry & Neurology Neurology
DX: G20.A1 Parkinson's disease without dyskinesia, without mention of fluctuations (principal); Z77.098 Contact with and (suspected) exposure to other hazardous, chiefly nonmedicinal, chemicals; G47.52 REM sleep behavior disorder
CPT/HCPCS: 99214; G2211

== ENCOUNTER → 2025-01-06 14:12 | Outpatient (BNVA) | payer OTHER, SELFPAY | PROVIDERS: PCP Psychiatry & Neurology Neurology; Visit Provider Psychiatry & Neurology Neurology | DX: G20.A1 Parkinson's disease without dyskinesia, without mention of fluctuations (principal); G47.52 REM sleep behavior disorder; Z77.098 Contact with and (suspected) exposure to other hazardous, chiefly nonmedicinal, chemicals | CPT/HCPCS: 99212 ==

== ENCOUNTER 2025-04-24 11:06 | Outpatient (AMB) | payer OTHER, SELFPAY ==
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
[2025-04-24 11:11] VITALS: PULSE 66; O2SAT 97; BMI 28.2
--- OUTSIDE RECORDS SUMMARY | 2025-04-24 12:23 | XMS_ITS | Encounter Summary ---
Author Organization [facility] Address [address] [place], [place] [address] Phone Care Team Providers Care Cancer Genetics Assistant Name Role Phone Lori Maradiaga NP Primary Care Provider [phone] Encounter Details Date Type Department Care Team (Late st Contact Info) Description 11/12/2017 Procedure Pass [facility], Ct Scan - [address] [address] Social History Tobacco Use Types Packs/Day Years Used Date Smoking Tobacco: Never Assessed Sex and Gender Information Value Date Recorded Sex Assigned at Not on file Legal Sex Male 10:03 PM EDT Gender Identity Not on file Sexual Orientation Not on file documented as of this encounter Plan of Treatment Not on file documented as of this encounter Visit Diagnoses Not on filedocumented in this encounter Additional Health Concerns Infection Onset Date Last Indicated Resolved Time CoV-Risk 10/27/2022 10/27/2022 10/27/2022 8:56 PM EDT COVID-19 10/27/2022 10/27/2022 11/17/2022 1:23 AM EDT documented as of this encounter Care Teams Cancer Genetics Assistant Relationship Specialty Start Date End Date Lori Maradiaga NP PCP - General Family Medicine 11/12/17 documented as of this encounter Additional Source Comments The information contained in this document represents components of the legal health record. It is not the complete legal health record.[facility]
--- OUTSIDE RECORDS SUMMARY | 2025-04-24 12:23 | XMS_ITS | Clinical Summary ---
Author Organization [facility] Address [address] [facility] [place] [address] Care Team Providers Care Foil Operator Name Role Phone Unknown Primary Care Provider Unavailabl e Allergies Active Allergy Reactions Criticality Noted Date Comments Shellfish Derived High CIS - Anaphylaxis Medications atenolol (TENORMIN) 50 mg tablet 06/21/2006 Active NIFEdipine (ADALAT CC) 30 mg 24 hr tablet 06/21/2006 Active ALPRAZolam (XANAX) 0.5 mg tablet 06/21/2006 Activ e Social History Tobacco Use Types Packs/Day Years Used Date Smoking Tobacco: Never Assessed Sex and Gender Information Value Date Recorded Sex Assigned at Not on file Legal Sex Male 7:14 AM EST Gender Identity Not on file Sexual Orientation Not on file Plan of Treatment Health Maintenance Due Date Last Done Comments CT Colonography 1949 Colonoscopy 1950 Colorectal Cancer Screening 1950 FIT DNA 1949 FIT 1950 Sigmoidoscopy (10 year) with FIT yearly 1949 Sigmoidoscopy 1950 Hepatitis C Screening 09/21/1967 Lipid Screening 09/21/1967 Tetanus/Diphtheria/Pertussis Vaccines (1 - Tdap) 09/20 Pneumoccocal Vaccine: 50+ (1 of 1 - PCV) 09/21/1999 Zoster vaccine (1 of 2) 09/21/1999 Advance Directive 2004 RSV Vaccine (1 - 1-dose 75+ series) 2024 Covid-19 Vaccine (1 - season) 2025 Influenza (Flu) vaccine (1 o f 1 - Influenza standard series) 03/23/2025 Care Teams Foil Operator Relationship Specialty Start Date End Date Unknown None PCP - General 07/09/17
--- OUTSIDE RECORDS SUMMARY | 2025-04-24 12:23 | XMS_ITS | Encounter Summary ---
Author Organization [facility] Address [address] [facility] [address] [place], [place] [address] Phone Care Team Providers Care Review Nurse Name Role Phone Lori Maradiaga PRODUCT ACCOUNTANT Primary Care Provider [phone] Reason for Referral * MRI/CAT Scan - Closed Specialty Diagnoses / Procedures Referred By Maximo lopez Referred To Contact Radiology Diagnoses Gross hematuria Procedures CT Abdomen/Pelvis Michelle Johnson PA Phone: tel: fax: [email or web address] Referral ID Status Reason Start Date Expiration Date Visits Re quested Visits Authorized [id number] Closed 11/12/2017 11/12/2018 1 1 Encounter Details Date Type Department Care Team (Late st Contact Info) Description 11/12/2017 Ancillary Orders [facility] External Provider Virtual Department [address] [place] [address] Michelle Johnson PA [address] [phone] [email or web address] Gross hematuria Social History Tobacco Use Types Packs/Day Years Used Date Smoking Tobacco: Never Assessed Sex and Gender Information Value Date Recorded Sex Assigned at Not on file Legal Sex Male 10:03 PM EDT Gender Identity Not on file Sexual Orientation Not on file documented as of this encounter Plan of Treatment Not on file documented as of this encounter Results * CT ABDOMEN/PELVIS WITH AND WITHOUT CONTRAST (11/22/2017 11:42 AM EDT) Anatomical Region Laterality Modality Abdomen, Pelvis Computed Tomogra phy 11/22/2017 11:4 4 AM EDT Impressions 11/22/2017 11:51 AM EDT Stable appearance relative to prior imaging with 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 No significant upper urinary tract mass lesion is evident. There is a cyst in the left kidney. No nephrolithiasis or hydronephrosis is seen. No significant bladder pathology is noted. TOTAL CTDIvol: 22.10 mGy S/S: Gross hematuria POS -[id number] Narrative 11/22/2017 11:51 AM EDT COMPARISON: CT abdomen pelvis January 02, 2014 TECHNIQUE: Water is used as an oral contrast agent. Pre-contrast views are obtained from the kidneys through the inferior pubic rami. Intravenous contrast is then administered and scanning obtained at ninety seconds from the dome of the liver to the iliac crests. Delayed scanning is then obtained from above the kidneys through the inferior pubic rami during excretory phase. Automated exposure control utilized. FINDINGS: The lung bases are clear. No significant pleural fluid is seen. The liver is homogeneous. No bile duct dilatation is noted. The spleen is unremarkable. The pancreas appears normal. No adrenal masses are seen. No nephrolithiasis or hydronephrosis is evident. What appears to be a simple cyst is evident related of the medial upper cortex of the left kidney. No intraluminal filling defects are noted. No ureteral or bladder calculi are seen. The bladder itself is unremarkable. No periaortic lymphadenopathy is seen. What appear to be possible radiation seeds are evident in the prostate gland. This should be correlated clinically. No pelvic lymphadenopathy is evident. No inguinal pathology is seen. There is a prominent compression fracture of the L2 vertebral body which appears unchanged. Procedure Note Gurjit Ramirez MD - 11/22/2017 COMPARISON: CT abdomen pelvis January 02, 2014 TECHNIQUE: Water is used as an oral contrast agent. Pre-contrast viewsare obtained from the kidneys through the inferior pubic rami.Intravenous contrast is then administered and scanning obtained at ninetyseconds from the dome of the liver to the iliac crests. Delayed scanningis then obtained from above the kidneys through the inferior pubic ramiduring excretory phase. Automated exposure control utilized. FINDINGS: The lung bases are clear. No significant pleural fluid is seen. The liver is homogeneous. No bile duct dilatation is noted. The spleen is unremarkable. The pancreas appears normal. No adrenal masses are seen. No nephrolithiasis or hydronephrosis is evident. What appears to be asimple cyst is evident related of the medial upper cortex of the leftkidney. No intraluminal filling defects are noted. No ureteral or bladdercalculi are seen. The bladder itself is unremarkable. No periaortic lymphadenopathy is seen. What appear to be possible radiation seeds are evident in the prostategland. This should be correlated clinically. No pelvic lymphadenopathy is evident. No inguinal pathology is seen. There is a prominent compression fracture of the L2 vertebral body whichappears unchanged. IMPRESSION: Stable appearance relative to prior imaging with presumed radiation seedsevident in the prostate gland. No significant upper urinary tract masslesion is evident. There is a cyst in the left kidney. No nephrolithiasisor hydronephrosis is seen. No significant bladder pathology is noted. TOTAL CTDIvol: 22.10 mGy S/S: Gross hematuria POS -[id number] Michelle ESTRADA IMG CT ABD/PELVIS Final Re sult documented in this encounter Visit Diagnoses Diagnosis Gross hematuria Gross hematuria documented in this encounter Additional Health Concerns Infection Onset Date Last Indicated Resolved Time CoV-Risk 10/27/2022 10/27/2022 10/27/2022 8:56 PM EDT COVID-19 10/27/2022 10/27/2022 11/17/2022 1:23 AM EDT documented as of this encounter Care Teams Review Nurse Relationship Specialty Start Date End Date Lori Maradiaga NP PCP - General Family Medicine 11/12/17 documented as of this encounter Additional Source Comments The information contained in this document represents components of the legal health record. It is not the complete legal health record.[facility]
--- OUTSIDE RECORDS SUMMARY | 2025-04-24 12:23 | XMS_ITS | Clinical Summary ---
Author Organization [facility] Address [address] [place], [place] [address] Phone Care Team Providers Care Farm Machinery Mechanic Name Role Phone Lori Maradiaga NP Primary Care Provider Allergies Active Allergy Reactions Criticality Noted Date Comments Shellfish Containing Products Anaphylaxis High 10/27 Social History Tobacco Use Types Packs/Day Years Used Date Smoking Tobacco: Never Assessed Education Answer Date Recorded Are you interested in more education? Not on tomeka e 11/17/2022 Are you concerned about learning? Not on file 11/17/2022 No 11/17/2022 No 11/17/2022 Digital Access Answer Date Recorded No 12/16/2022 No 12/16/2022 No 12/16/2022 Reliable internet access at home? Not on file 12/16/2022 Device with a working camera? Not on file Sex and Gender Information Value Date Recorded Sex Assigned at Not on file Legal Sex Male 10:03 PM EDT Gender Identity Not on file Sexual Orientation Not on file Last Filed Vital Signs Vital Sign Reading Time Taken Comments Blood Pressure 129/100 10/27/2022 9:00 PM EDT Pulse 89 10/27/2022 7:26 PM EDT Temperature 36.4 C (97.5 F) 10/27/2022 7:26 PM EDT Respiratory Rate 18 10/27/2022 7:26 PM EDT Oxygen Saturation 97% 10/27/2022 9:00 PM EDT Inhaled Oxygen Concentration - - Weight 87.1 kg (192 lb) 01/09/2012 4:35 AM EDT Height 172.1 cm (5' 7.75 ) 01/09/2012 4:35 AM ED T Body Mass Index 29.41 01/09/2012 4:35 AM EDT Plan of Treatment Health Maintenance Due Date Last Done Comments LIPID PANEL 1949 DEPRESSION SCREENING 1961 SMOKING Hx and SMOKELESS TOBACCO SCREENING 1962 HEPATITIS C SCREENING 09/21/1967 COLOGUARD 1994 COLONOSCOPY 1994 COLORECTAL CANCER SCREENING 1994 FIT TEST 1994 FOBT 1994 SIGMOIDOSCOPY 1994 VIRTUAL COLONOSCOPY 1994 Adult Td,Tdap Booster 10/15/2022 10/15/2012, 003 RSV VACCINE (1 - 1-dose 75+ series) 2024 INFLUENZA VACCINE (#1) 2025 , 05/23/2019, 04/29/2018, Additional history exists COVID-19 VACCINE ( season) 2025 06/25/2021, 10/22/2020, 09/24/2020 PNEUMOCOCCAL VACCINES (50+ years) Completed 10/04/2020, 04/05/2016, 12/02/2014 ZOSTER VACCINES Completed 02/18/2021, 11/26/2020 HEPATITIS A VACCINES Aged Out No long er eligible based on patient's age to complete this topic HIB VACCINES Aged Out No longer eligi ble based on patient's age to complete this topic MENINGOCOCCAL VACCINES (ACWY) Aged Out No longer eligible based on patient's age to complete this topic MENINGOCOCCAL VACCINES (B) Aged Out N o longer eligible based on patient's age to complete this topic Medical Devices Not on file Insurance [facility] MEDICARE A [facility] MEDICARE A [facility] MEDICARE A [facility] MEDICARE A [facility] MEDICARE A [facility] FEDERAL MEDICARE A Care Teams Farm Machinery Mechanic Relationship Specialty Start Date End Date Lori Maradiaga NP PCP - General Family Medicine 11/12/17 Additional Source Comments The information contained in this document represents components of the legal health record. It is not the complete legal health record.[facility]
== END 2025-04-24 11:42 | disposition home or self-care (01) ==
LOC: HO.HSMS 11:07
PROVIDERS: PCP Psychiatry & Neurology Neurology; Visit Provider Psychiatry & Neurology Neurology
DX: G20.A1 Parkinson's disease without dyskinesia, without mention of fluctuations (principal); Z77.098 Contact with and (suspected) exposure to other hazardous, chiefly nonmedicinal, chemicals; G47.52 REM sleep behavior disorder
CPT/HCPCS: 99214; G2211

== ENCOUNTER → 2025-04-24 11:06 | Outpatient (BNVA) | payer OTHER, SELFPAY | PROVIDERS: PCP Psychiatry & Neurology Neurology; Visit Provider Psychiatry & Neurology Neurology | DX: G20.A1 Parkinson's disease without dyskinesia, without mention of fluctuations (principal); G47.52 REM sleep behavior disorder; Z77.098 Contact with and (suspected) exposure to other hazardous, chiefly nonmedicinal, chemicals | CPT/HCPCS: 99212 ==